=== PATIENT | female | born 1950 | race Caucasian/White ===

== ENCOUNTER 2019-10-12 12:31 | Inpatient (IN) | payer MEDICARE, OTHER ==
[~2019-10-12] VITALS: Ht 162.6 cm; Wt 99.8 kg
--- NOTE | ~2019-10-12 | OR ---
[facility] [address] [place], [place] [address] Draft DATE OF OPERATION: 10/13/2019 SURGEON: Ynes Arevalo MD PREOPERATIVE DIAGNOSES: 1. Morbid obesity. 2. Small bowel obstruction with incarcerated incisional hernia. 3. Prior upper midline incision related to the paraesophageal hernia repair 2005. POSTOPERATIVE DIAGNOSES: 1. Morbid obesity. 2. Small bowel obstruction with incarcerated incisional hernia. 3. Prior upper midline incision related to the paraesophageal hernia repair 2005. PROCEDURES: 1. Abdominal wall exploration and lysis of small bowel adhesions. 2. Repair and reconstruction of abdominal incisional hernia with unilateral components release and medialization of fascia. 3. Implantation of Prolene mesh underlay technique. ANESTHESIA: General endotracheal, Ynes De Guzman CRNA. DRAINS: 7 mm Siva x2. INDICATION: This morbidly obese 69-year-old white woman is from [place], [place], was found by Dr. Macario Ceron to have small-bowel obstruction when she presented with persistent nausea and vomiting. A CT scan was performed in [place], which demonstrated small bowel in the subcutaneous space related to a large incisional hernia in the upper midline. The patient underwent a Hill repair for complex paraesophageal hernia by me in 2005. The patient has been fluid resuscitated, given intravenous antibiotics, and is now to undergo repair of the hernia by whatever technique necessary, particularly given her underlying obesity. The risks of bleeding, infection, and most importantly recurrence were reviewed with her, she understands and wished to proceed. FINDINGS: The fascial defect initially identified was about 8 cm in size. A very large well peritonealized hernia sac was noted emanating to the left side of the abdomen containing PATIENT NAME: RUTH GROSS OPERATIVE REPORT DATE OF : 50 REPORT #: [id number] PHYSICIAN: YNES AREVALO MD PCP: HERMILO MCCOLLUM NP REPORT IS CONFIDENTIAL AND NOT TO BE RELEASED WITHOUT AUTHORIZATION [facility] [address] [place], [place] [address] Draft multiple loops of small bowel. Ultimately, the abdomen was entered, which allowed for lysis of some adhesions, which may have additionally caused obstructive symptoms. Repair of the abdominal wound was complex, particularly given further exploration cephalad showed marked attenuation in the midline fascia with herniation of omentum as well. Ultimately to allow for complete fascial closure, a component separation of the left side was undertaken allowing for medialization of the midline fascia. A large segment of Prolene mesh was implanted in the properitoneal space in a submuscular configuration. Complete fascial closure has been accomplished despite the difficulty of doing so. DESCRIPTION OF PROCEDURE: The patient was brought to the operating room, given a general endotracheal anesthetic. Preoperative antibiotic Ancef was given. Sequential compression device stockings used and a Martinez catheter was placed. The very large abdomen was prepared with a chlorhexidine solution and draped sterilely. The palpable herniation was above the umbilicus. An incision was made in a limited way above the umbilicus. Dissection carried through the subcutaneous tissue identifying and edematous hernia sac with herniated bowel. This was dissected free from the subcutaneous space with blunt dissection ultimately. Hernia sac was opened and entered and the bowel was able to be manipulated back into the peritoneal cavity. A very large and chronic peritoneal sac was noted dominantly entering to the left side of the abdomen. This was dissected free with all due care from the subcutaneous space hoping to preserve the hernia sac of the biologic barrier for implantation of mesh as a repair. The defect at this point was approximately 8-10 cm. The once the hernia sac was dissected free, properitoneal dissection was undertaken. It became clear that there would be unlikely ability to implant mesh in the properitoneal space, but rather the submuscular space. The underlying fascia was then freed from the overlying rectus abdominis muscles to develop a space in that area. Further cephalad direction demonstrated markedly attenuation even of this layer with some herniation of omentum cephalad. All of this was dissected free, which was quite time consuming. Ultimately, it was clear that the fascial defect was well defined from the underlying posterior rectus sheath. An implantation of mesh in the submuscular position would be the most appropriate means of repair of the hernia defect. To medialized the linea alba more fully, a component separation release was undertaken laterally on the left side. This allowed for medialization of the fascia. With meticulous care and interrupted 2-0 Vicryl suture, the posterior fascial sheath was able to be reapproximated to provide a more secure biologic barrier for mesh. This was undertaken with a numerous number of interrupted 2-0 Vicryl in mattress technique. PATIENT NAME: RUTH GROSS OPERATIVE REPORT DATE OF : 50 REPORT #: [id number] PHYSICIAN: YNES RAEVALO MD PCP: HERMILO MCCOLLUM NP REPORT IS CONFIDENTIAL AND NOT TO BE RELEASED WITHOUT AUTHORIZATION [facility] [address] [place] [address] Draft Photographs were taken. A 12 inch x 12 inch segment of Prolene mesh was cut to an elliptical configuration and secured in an underlay technique behind the rectus muscle with interrupted 0 Prolene sutures with Prolene pledgets. Midline fascia, thanks to lateral mobilization was medialized, allowing for interrupted 0 Prolenes with Prolene pledgets in mattress technique to reapproximate the midline fascia. Subcutaneous tissue was irrigated and two separate Siva drains were placed. This subcutaneous tissue reapproximated with interrupted 2-0 Vicryl. The skin was then closed with running subcuticular 3-0 Vicryl. Steri-Strips were applied as was a silver sponge dressing. The operation was prolonged, complicated, and difficult lasting 3 hours and 10 minutes, but was accomplished safely and with medialization of the fascia completely. MD EVE Sutton/SHILPIL /[id number] cc: Gilson Ceron MD Copies: GILSON CERON MD ~ PATIENT NAME: RUTH GROSS OPERATIVE REPORT DATE OF : 50 REPORT #: [id number] PHYSICIAN: YNES AREVALO MD PCP: HERMILO MCCOLLUM NP REPORT IS CONFIDENTIAL AND NOT TO BE RELEASED WITHOUT AUTHORIZATION
--- NOTE | ~2019-10-12 | DS ---
[facility] [address] [place], [place] [address] Draft ADMISSION DATE: 10/12/2019 DISCHARGE DATE: 10/15/2019 REASON FOR ADMISSION: This morbidly obese 69-year-old white woman is known to me from the past, having undergone Hill posterior gastropexy for a large paraesophageal hernia 16 years ago. She had done well in that regard. On Wednesday, (day of admission, ) began having vague abdominal pain and some left-sided abdominal pain, which worsened. She presented to the [facility] in [facility], where she was evaluated by Dr. Ceron and found to have on CT scan, a small bowel obstruction with herniation of small bowel in the area of the incision extending to the left of the abdomen. A nasogastric tube was placed and she was transferred for further evaluation and care. PERTINENT PHYSICAL EXAMINATION: NECK: Showed no thyromegaly or cervical adenopathy. CHEST: Clear. HEART: Regular without murmur. ABDOMEN: Broad and nondistended and quite obese. Upper midline incision is well healed. Palpation reveals bogginess in the region of the inferior aspect of the incision, consistent with possible small bowel herniation. She had no local tenderness. The fascial defect could not be defined due to her abdominal obesity. LABORATORY STUDIES: Showed white count of 12.3, hematocrit of 44.9, and platelets of 301,000. Chem profile was essentially normal. IMAGING DATA: A CT scan with counter sales representative images have been sent to me by Dr. Ceron confirming the findings of small bowel obstruction with herniation of small bowel through the midline incision and directed to the left side of the abdomen. HOSPITAL COURSE: She was received and transferred with nasogastric tube function. She underwent additional fluid resuscitation and stabilization. On October 14, 2019, she underwent operation. She was found to have a complex abdominal wall defect with herniated small bowel to the left of the midline with a very large hernia sac. Additionally, there was a fascial separation superiorly with herniation of properitoneal and omental fat. Operation included some lysis of adhesions of small bowel loops that had adhesions within the hernia sac, which quite likely was quite chronic. Abdominal reconstruction included component separation technique of the left abdomen PATIENT NAME: RUTH GROSS DISCHARGE SUMMARY DATE OF : 50 REPORT #: [id number] PHYSICIAN: YNES AREVALO MD PCP: HERMILO MCCOLLUM NP REPORT IS CONFIDENTIAL AND NOT TO BE RELEASED WITHOUT AUTHORIZATION [facility] [address] [place], [place] [address] Draft with implantation of Prolene mesh in a submuscular position with reapproximation of the underlying fascia. There is no mesh in continuity with the bowel. Medialization of the linea alba was able to be accomplished with this technique. Two drains were placed. Postoperatively, she was maintained with a nasogastric tube and a Martinez catheter for the first 24 hours, which was then removed. Her bowel function appeared to resume quite promptly, and she was ultimately advanced to a regular diet, which she tolerated well. By day of discharge, she is ambulating well, tolerating a regular diet, has serosanguineous drainage from the wound drains as expected. She is anticipated to be discharged to home with management of her own drains. We will plan to see her and return to our office in a week or so for drain removal. She has been given an abdominal binder and has been using it with ambulation. I have recommended she use it at all times when out of bed or not recumbent on the couch at home. Special instructions include avoidance of lifting more than 10 pounds for the next 4 weeks. DISCHARGE MEDICATIONS: Included: 1. Ibuprofen 600 mg p.o. q.6 hours p.r.n. pain, #60 refill two. 2. Resumption of lisinopril 10 mg p.o. daily. 3. Trazodone 50 mg p.o. as needed for sleep. 4. Calcium carbonate one tablet p.o. daily. 5. Oxycodone/Tylenol, 5/300 two tablets p.o. q.6 hours as needed for pain, #20. Additionally, she will have Tylenol 1000 mg p.o. q.6 hours as needed for pain instead of the Percocet as needed. DISCHARGE DIAGNOSES: 1. Acute small bowel obstruction related to chronic herniation of incisional hernia at midline, status post repair including component separation technique with medialization and reapproximation of fascia with underlying large Prolene mesh in submuscular position. 2. Morbid obesity. 3. Hypertension. 4. Distant history of paraesophageal hernia with Hill posterior gastropexy 16 years ago. Ynes Arevalo MD PATIENT NAME: RUTH GROSS DISCHARGE SUMMARY DATE OF : 50 REPORT #: [id number] PHYSICIAN: YNES AREVALO MD PCP: HERMILO MCCOLLUM NP REPORT IS CONFIDENTIAL AND NOT TO BE RELEASED WITHOUT AUTHORIZATION [address] [place] [address] Draft [facility] /[id number] cc: Gilson Ceron MD Copies: GILSON CERON MD ~ PATIENT NAME: RUTH GROSS DISCHARGE SUMMARY DATE OF : 50 REPORT #: [id number] PHYSICIAN: YNES AREVALO MD PCP: HERMILO MCCOLLUM NP REPORT IS CONFIDENTIAL AND NOT TO BE RELEASED WITHOUT AUTHORIZATION
--- NOTE | 2019-10-12 14:45 | NUR ---
PT ARRIVED TO FLOOR VIA STRETCHER FROM AMBULANCE, PT IS A TRANSFER FROM [facility].
[2019-10-12] MEDS ORDERED: LISINOPRIL10 MG PO (15:26)
[2019-10-12] MEDS ORDERED: TRAZODONE HCL50 MG NG (15:26)
[2019-10-12] MEDS ORDERED: CALCIUM + VITA1 EACH PO (16:25)
--- NOTE | 2019-10-12 16:25 | NUR ---
MED REC COMPLETE
--- NOTE | 2019-10-12 16:38 | NUR ---
PT ADMISSION ASSEMENT DONE. PT STATES SHE DOESN'T HAVE ANY CONCERNS OR NEEDS AT THIS TIME
--- NOTE | 2019-10-12 18:15 | NUR ---
IN PTS ROOM. PT FEELS THAT SHE HAS HAD ALL QUESTIONS ANSWERED AT THIS TIME. PER VERBAL ORDER FROM PT CAN SIP ON 7UP UNTIL MIDNIGHT, @ MIDNIGHT PT IS TO BE STRICT NPO. PT HAS CALL LIGHT AND PERSONAL PHONE WITHIN REACH
--- NOTE | 2019-10-12 18:52 | NUR ---
PT ARRIVED TO THE FLOOR AT 1445 BY AMBULANCE AND WAS TRANSFERED FROM THE [facility] ER. PT STATES SHE HAD 6/10 PAIN THAT WAS RELIEVED BY 2MG OF MORPHINE. PT A&O X4, STEADY ON HER FEET.
--- NOTE | 2019-10-12 19:08 | NUR ---
DAUGHTERS PHONE NUMBER- DESTINY- [phone]
--- NOTE | 2019-10-12 20:24 | NUR ---
coop with assessment, NGT R christianoe patentd, draining dark brown colored thick drainage, IVF infusing.
--- NOTE | 2019-10-13 00:03 | NUR ---
HELPED PT TO THE BATHROOM AND BACK TO BED. SCD'S PUT BACK ON. BEDSIDE TABLE AND CALL LIGHT IN REACH.
--- NOTE | 2019-10-13 00:06 | NUR ---
pt admited to room 119 from Ed. had 500cc bile smelling emesis, protonix given as scheduled, CBG 360, received scheduled Lantus 20 units sq. IVF infusing. Pt coop with admit assessment, will completed once he feels like talking. NPO, mouth care done. call light at bedside
--- NOTE | 2019-10-13 00:19 | NUR ---
c/o feeling nauseated, medicated with zofran 4mg IV. Up to br, voided, back to bed, NGT patent, IVf infusing
--- NOTE | 2019-10-13 02:15 | NUR ---
VITALS AND I&OS DONE AND CHARTED. BEDSIDE TABLE AND CALL LIGHT IN REACH. PT NEEDS NOTHING AT THIS TIME.
--- NOTE | 2019-10-13 02:19 | NUR ---
NGT PATENT, IVF INFUSING W/O PROBLEMS, COOP WITH ASSESSMENT, MEDICATED WITH TORADOL 30MG IV C/O ABD PAIN, NO FURTHER C/O NAUSEA. TURNS SELF IN BED, NPO SINCE MIDNIGHT, SCDS IN PLACE. CALL LIGHT AT HANDS REACH
--- NOTE | 2019-10-13 05:23 | NUR ---
Pt has been NPO for am surgery, Has been medicated with ZOfran per dry heaving and feeling nauseated, effedctive, c/o abd pain, medicated with Toradol IV, effective, IVf infusing. SCDs in place. Pt signed surgery consent, ad pre-op surgery teaching done, no questions asked, Turns self in bed, voided QS urine earlier in shift.
--- NOTE | 2019-10-13 06:31 | NUR ---
up to br, voided, back to bed, NGT patentd, IVf infusing, scds on. voided, Back to bed, tolerated well, no n/v, no c/o abd pain. 1PA
--- NOTE | 2019-10-13 06:35 | NUR ---
VITALS AND I&OS DONE AND CHARTED. HELPED PT TO THE BATHROOM AND BACK TO BED. SCD'S AND 02 PUT BACK ON. BEDSIDE TABLE AND CALL LIGHT IN REACH.
--- NOTE | 2019-10-13 07:42 | NUR ---
RECIEVED BEDSIDE REPORT FROM NAYA GUNTER. PT IS AWAKE AND ALERT IN BED, NEEDS WIPE DOWN AND PAPERWORK PRINTED FOR SURGERY. SURGERY IS SCHEDULED FOR 10-11AM. PT IS NPO. NGT IN R NARE TO LISHARI.
--- NOTE | 2019-10-13 09:27 | NUR ---
PT READY FOR SURGERY. WIPE DOWN COMPLETE, PRE-OP VOID, NEW GOWN. MEDS GIVEN, IVF HANGING OFF PUMP. PT HAS NO QUESTIONS REGARDING SURGERY.
--- NOTE | 2019-10-13 10:08 | NUR ---
PT IS OFF THE FLOOR TO OR. PREOP ABX ATTACHED TO IVF BAG. SWITCHED OFF IV PUMP.
--- NOTE | 2019-10-13 10:12 | NUR ---
SPOKE WITH PATIENT IN ROOM. PATIENT AWAITING TRIP TO OR. PATIENT STATES SHE LIVES WITH . HE WILL BE THERE TO HELP HER AND DRIVE HER HOME. SHE ALSO HAS SUPPORT OF DAUGHTER DESTINY [phone]. PATIENT DOES NOT USE DME. SHE IS RETIRED. FEELS SAFE TO RETURN HOME. SHE FEELS SHE HAS NO ISSUES WITH AFFORDING MEDS, FOOD OR UTILITIES. SHE STILL DRIVES AND HAS NO AMBULATION ISSUES. CASE MANAGEMENT WILL FOLLOW NEEDED.
--- NOTE | 2019-10-13 10:32 | NUR ---
PT ALERT, ORIENTED, RESTING IN BED WITH RM DARKENED. PT IS WAITING FOR SURGERY AND SPOKE BRIEFLY WITH ME. NG TUBE WORKING, BUT VERY UNCOMFORTABLE FOR PT. DR AREVALO IN TO SPEAK WITH PT AND OR STAFF WAITING TO TAKE PT TO SURGERY. GAVE PT A BLESSING.
--- NOTE | 2019-10-13 13:14 | EKG ---
[facility] [address] [facility] [place], [place] [address] Signed Normal sinus rhythm Anterior infarct , age undetermined T wave abnormality, consider lateral ischemia Abnormal ECG No previous ECGs available Confirmed by KHADRA FISCHER MD ([id number]) on 10/13/2019 1:13:53 PM Electronically Signed By: KHADRA FISCHER MD 10/13/19 1314 PATIENT NAME: RUTH GROSS Electrocardiogram DATE OF : 50 PHYSICIAN: KHADRA FISCHER MD REPORT #: [id number] REPORT IS CONFIDENTIAL AND NOT TO BE RELEASED WITHOUT AUTHORIZATION
--- NOTE | 2019-10-13 15:15 | NUR ---
10/13/19 1515 JESUS MARTINES 1504 PATIENT INTO PACU. AIRWAY WAS BEING MAINTAINED WITH ORAL AIRWAY AND JAW THRUST. PATIENT O2 SAT IS 90% ON 15L MASK. PATIENT RESIRATIONS ARE EVEN AND UNLABORED. PATIENT APPEARS TO EB RESTING COMFORTABLY. 1510 PATIENT RESTING COMFORTABLY. RESPIRATIONS EVEN AND UNLABORED. PATIENT HAS MADE NO ATTEMPTS TO REMOVE ORAL AIRWAY. O2 SAT IS AT 92% ON 15 LITERS. SCDS ON AND TURNED ON.
--- NOTE | 2019-10-13 16:30 | NUR ---
PT ARRIVED IN UNIT FROM PACU. PT IS DROWSY, WAKES TO VOICE, ANSWERES APROPRIATELY. USED TRANSFER SHEET TO TRANSFER TO BED. PT HAS 2 OLMAN DRAINS COVERED WITH GUAZE AND MIDLINE INCISION. PALACIOS CATH IN PLACE. CPOX IN PLACE. O2 NC AT 3L, STAYS IN LOW 90S. DENIES PAIN AT THIS TIME. DENIES NAUSEA. DRESSINGS C/D/I.
--- NOTE | 2019-10-13 17:30 | NUR ---
PT IS C/O PAIN AND NAUSEA. PRN TORADOL GIVEN, ZOFRAN GIVEN. PT IS UNABLE TO GET COMFORTABLE DESPITE MULTIPLE ATTEMPTS AT POSITIONING. WERE ABLE TO GET COMFORTABLE WITH PILLOWS. VSS. DRESSINGS C/D/I. IVF CONTINUED PREOP PER ORDER.
--- NOTE | 2019-10-13 18:22 | NUR ---
PT SLEEPING AFTER ZOFRAN AND TORADOL. APPEARS COMFORTABLE. NO COMPLAINTS AT THIS TIME. DRESSING C/D/I. WILL CONTINUE TO MONITOR.
--- NOTE | 2019-10-13 19:54 | HP ---
[facility] [address] [place], [place] [address] Signed ADMISSION DATE: 10/12/2019 REASON FOR ADMISSION: Small bowel obstruction related to incarcerated incisional hernia. HISTORY OF PRESENT ILLNESS: This morbidly obese 69-year-old white woman is known to me from the past having undergone hill posterior gastropexy for a large paraesophageal hernia 16 years ago. She has done well in that regard over the many years. She had upper endoscopy repeated in 2011, where she was found to have an intact flap valve. No evidence of recurrent paraesophageal hernia, but some evidence of duodenal erosions, which were nonbleeding. On Wednesday (today is ), she began having vague abdominal pain and some left-sided abdominal pain. She had worsening of her symptoms with associated nausea and vomiting and presented to the [facility] in [place], [place]. She was evaluated by Dr. Ceron and evaluation included a CT scan of the abdomen, which showed proximal bowel loop dilation, a small-bowel obstruction and what appeared to be incisional hernia with small bowel loops within the subcutaneous space. She was treated with nasogastric tube decompression, IV fluid resuscitation and is excepted in transfer from [place] for the purpose of her bowel obstruction management. PAST MEDICAL HISTORY: 1. Morbid obesity. 2. Hypertension. 3. History of large paraesophageal hernia repair in 2005 and subsequent upper endoscopy in 2011. SOCIAL HISTORY: She is . Communication is made with her , who is not able to be in the hospital at this time due to visiting restrictions due to the viral pandemic. I called and discussed things with him on his daughter Karina's phone ([phone]). REVIEW OF SYSTEMS: She denies any shortness of breath or chest pain. She is having no dysphagia. No reflux symptoms. Her pain is much improved since nasogastric tube decompression. PHYSICAL EXAMINATION: GENERAL: This is a morbidly obese white woman, who weighs 99 kg with BMI of 37.8. VITAL SIGNS: Temperature of 98.2, respirations 16, blood pressure 160/82, pulse 77, pulse oximetry is 98% on 2 L nasal cannula oxygen. She is 86% on room air. Electronically Signed By: YNES AREVALO MD 10/13/[address]1953 PATIENT NAME: RUTH GROSS HISTORY AND PHYSICAL DATE OF : 50 REPORT #: [id number] PHYSICIAN: YNES AREVALO MD PCP: HERMILO MCCOLLUM NP REPORT IS CONFIDENTIAL AND NOT TO BE RELEASED WITHOUT AUTHORIZATION [facility] [address] [place], [place] [address] Signed NECK: Shows no thyromegaly or cervical adenopathy. She has somewhat of an overbite. CHEST: Shows normal respiratory excursion without tachypnea or wheezing. HEART: Regular. ABDOMEN: Broad and nondistended at this time, and quite obese. Upper midline incision is well healed. Palpation reveals bogginess in the region of the inferior aspect of the incision consistent with possible herniation. Due to abdominal wall obesity, definition of a fascia defect could not be ascertained at this time. EXTREMITIES: Show no clubbing, cyanosis, or edema. LABORATORY DATA: Studies have been obtained showing a white count of 12.3, hematocrit of 44.9, and platelet count of 301,000. Chem profile with lab study is still pending including electrolytes. Under the circumstances of her obesity, we will obtain additionally a chest x-ray to ascertain no infiltrate or other stigmata of COVID-19 viral infection as well as a 12-lead EKG. ASSESSMENT: I reviewed images from the CT scan performed in [place], which confirmed the clinical impression of small bowel obstruction related to hernia. She has no sign of peritonitis. She has some dehydration and fluid resuscitation was undertaken at this time. She is offered to undergo operation tomorrow to include open repair of incarcerated hernia causing bowel obstruction. The risks of bleeding, infection, recurrence, and other unforeseen complications were reviewed in detail. I think she will do well with operation and certainly does need to have it done. I discussed this also with her on the phone, who understands and agrees. Review of the notes from Dr. Ceron from earlier in the day, confirmed that she has been unable to tolerate oral intake or her blood pressure medicine. On that basis, continued use of a nasogastric tube and IV fluid administration will be maintained until operative intervention. MD EVE Sutton/MODL /[id number] cc: Deion Ceron MD Electronically Signed By: YNES AREVALO MD 10/13/191953 PATIENT NAME: RUTH GROSS HISTORY AND PHYSICAL DATE OF : 50 REPORT #: [id number] PHYSICIAN: YNES AREVALO MD PCP: HERMILO MCCOLLUM NP REPORT IS CONFIDENTIAL AND NOT TO BE RELEASED WITHOUT AUTHORIZATION [facility] [address] [facility] [place], [place] [address] Signed Copies: DEION CERON MD ~ Electronically Signed By: YNES AREVALO MD 10/13/19 1954 PATIENT NAME: RUTH GROSS ARTUR HISTORY AND PHYSICAL DATE OF : 50 REPORT #: [id number] PHYSICIAN: YNES AREVALO MD PCP: HERMILO MCCOLLUM NP REPORT IS CONFIDENTIAL AND NOT TO BE RELEASED WITHOUT AUTHORIZATION
--- NOTE | 2019-10-13 21:45 | NUR ---
[facility] RN ROUNDING NOTE. PT RESTING IN BED WITH EYES CLOSED. RESPIRATIONS EVEN AND UNLABORED. PT APPEARS TO BE SLEEPING COMFORTABLY. CALL LIGHT IN REACH. WHITE BOARD UPDATED.
--- NOTE | 2019-10-13 22:21 | NUR ---
comfortable, no c/o n/v or pain.
--- NOTE | 2019-10-14 00:10 | NUR ---
Resting, O2 3L NC. NGT patent, draining thick brown drainage to ILWS, IVF infusing, midline abd incision with pressure dressing intact, 2JP draining sanguineous drainage. abd binder removed earlier at pts requests, f/c patent. scds on. hob elevated, NPO with ice chips, call light at bedside
--- NOTE | 2019-10-14 03:04 | NUR ---
awakes eaily, repositions self, NGT patentd, draining small amounts of dark very brown colored thick drainage, O2 3LNC, denies sob, denies passing gas or burping, midline abd dressing in tact, 2JP draining sanguneous drainage, scds in place, no c/o apin. NPO, does own mouth care
--- NOTE | 2019-10-14 04:27 | NUR ---
Resting, HOB elevated to comofrt, NGT paten IVf infusing, SCDS on, no resp distress, eyes closed, resp even, unlabored, call light at bedside
--- NOTE | 2019-10-14 05:03 | NUR ---
pt c/o 2-3 abd pain, medicated iwth toradol iv, c/o light upset stomach, medicated with zofran 4mg iv.
--- NOTE | 2019-10-14 05:30 | NUR ---
Up to edge of bed, tolerated well, then she walked in room, to first recliner chair and back to bed, tolerated well. denies passing gas. O2 weaned down to 2L NC. CPOX 96%
--- NOTE | 2019-10-14 05:59 | NUR ---
Pt has slept well, denies passing gas. NGT R nare patent draining thick dark brown drainage. LIWS. VLADIMIR, midline abd dressing intact, 2JP, L (#2) OLMAN with more drainage that R(#1). abd soft. medicatred x2 per abd pain, with good pain relief. with Zofran x1 with good relief. F/c patent, QS dark yellow urine. SCds in place, Pt stood at edge of bed and walked in room, tolerated very well, Back to bed, HOB elevated NPO with ice chips, tolerating well, using call ight appropriately. IVF infusing well, no c/o adverse reaction to IV abx. IVF/Med teaching done, coantinue to reinforce post op wound care/pain/nausea med/ambulation and OLMAN care
--- NOTE | 2019-10-14 08:42 | NUR ---
PER ORDER, DC NGT AND PALACIOS CATH. PT TOLERATED WELL. PT STATED HER NAUSEA IS MINIMAL, BUT SHE "COULD TASTE ICK WHEN THE TUBE WAS PULLED". DENIES FLATUS, BUT STATES SHE CAN FEEL "RUMBLING". SUZANNE FERNANDEZ. ENCOURAGED PO INTAKE. PT HAS BEEN OUT OF BED TO CHAIR X1. AGREES TO GET UP AND AMBULATE IN HALLS X4 TODAY. BINDER OFF WHILE IN BED PER REQUEST. AGREES TO WEAR WHEN OOB.
--- NOTE | 2019-10-14 11:01 | NUR ---
PATIENT IN BED RESTING. PATIENT WORKING ON EATING SOME PEARS. CALL LIGHT IN REACH. PATIENT STATES PAIN IS STARTING TO COME BACK, RN NOTIFIED. NO FURTHER NEEDS AT THIS TIME.
--- NOTE | 2019-10-14 14:02 | NUR ---
PATIENT GETTING UP TO BATHROOM AND TO AMBULATE WITH RN. FRESH WATER GIVEN. CALL LIGHT IN REACH. NO FURTHER NEEDS AT THIS TIME.
--- NOTE | 2019-10-14 14:27 | NUR ---
PT UP TO WALK IN HALLWAY. PT WALKED FROM ROOM TO EAST END OF NURSES STATION. PT HAD ABD BINDER ON. PT UP TO VOID, VOIDED 200ML. PT TOLERATED WELL. O2 WHEN BACK IN BED WAS 88%. REPLACED O2 AT 1L, O2 SATS AT 93%. REMINDED PT TO COUGH AND DEEP BREATHE.
--- NOTE | 2019-10-14 18:22 | NUR ---
PATIENT IN BED WATCHING TV. NO VOID, RN NOTIFIED. CALL LIGHT IN REACH. NO FURTHER NEEDS AT THIS TIME.
--- NOTE | 2019-10-14 19:51 | NUR ---
Pt up in bed, hob elevated on 1LNC, IVf infusing, midline abd dressing with old shadowing, 2JP patent draining ss drainage. scds in place.c/o 10 ph/a pain., medicated iwth tylenol 1000mg po. states passing gas, tolerating reg diet, no c/o n/v
--- NOTE | 2019-10-14 22:24 | NUR ---
ANSWERED CALL LIGHT. SBA PATIENT IS UP FROM CHAIR TO USE THE TOILET. PATIENT IS BACK IN BED. CALL LIGHT IN REACH. SCD'S ARE ON.
--- NOTE | 2019-10-15 00:30 | NUR ---
resting, eyes closed, O2 1l NC, no resp distress, resp even, unlabored, ivf infusing, scds in place. call light at bedside
--- NOTE | 2019-10-15 01:49 | NUR ---
Resting, in bed, hob elevated to her comfort, on 1L NC, no resp distress. IVF infusing. scds in place. call light and lfuids at bedside
--- NOTE | 2019-10-15 07:01 | NUR ---
IV infiltrated, Dr Wu notified via phoneas asher Kohli to dc iv
--- NOTE | 2019-10-15 07:14 | NUR ---
RECIEVED REPORT FROM NAYA GUNTER. PT IS AWAKE AND ALERT. HAS BEEN UP WALKING IN ROOM. PT IS PASSING GAS. IV WENT BAD AT 0600. VERBAL ORDER TO LEAVE OUT SINCE SHE IS DISCHARGING TODAY.
--- NOTE | 2019-10-15 09:55 | NUR ---
PT UP TO VOID AND WALKED A BIG LAP AROUND NURSES STATION. STATES SHE FEELS MORE SORE TODAY, BUT IS MOVING SMOOTHER AND LESS RIGID. PASSING GAS, NO BM. ATE 50%. ABD BINDER ON. REPLACED SCDS.
--- NOTE | 2019-10-15 10:14 | NUR ---
PATIENT IN BED RESTING. CALL LIGHT IN REACH. NO FURTHER NEEDS AT THIS TIME.
[2019-10-15] MEDS ORDERED: IBUPROFEN600 MG PO (13:13)
[2019-10-15] MEDS ORDERED: PRIMLEV 5-3001 EACH PO (13:15)
--- NOTE | 2019-10-15 13:20 | NUR ---
PT IS IN THE SHOWER, DR AREVALO HAS ROUNDED. PT READY TO GO HOME. WILL GET DRESSED AND READY TO GO HOME.
[2019-10-15] MEDS ORDERED: MAPAP500 M1 PO (13:24)
--- NOTE | 2019-10-15 14:31 | NUR ---
DISCHARGE TEACHING COMPLETE. DISCUSSED WHEN TO FOLLOW UP, WHEN TO CALL THE DOCTOR, DIET, ACTIVITY, MEDICATIONS. VITALS TAKEN AND ENTERED. ALL PERSONAL BELONGINGS REMOVED FROM ROOM. PAIN MEDICATION GIVEN PRIOR TO DISCHARGE. PT VERBALIZED UNDERSTANDING.
== END 2019-10-15 14:15 | disposition home or self-care (01) | DRG 355 ==
LOC: MS 12:31
PROVIDERS: ADMIT Surgery
PROC: 0WUF0JZ Supplement Abdominal Wall with Synthetic Substitute, Open Approach (ICD-10-PCS; principal; 2019-10-13 08:30)
DX: K43.0 Incisional hernia with obstruction, without gangrene (principal); I10 Essential (primary) hypertension; E86.0 Dehydration; E66.01 Morbid (severe) obesity due to excess calories; Z68.37 Body mass index [BMI] 37.0-37.9, adult; Z79.899 Other long term (current) drug therapy
CPT/HCPCS: 36415; 71046; 80053; 82247; 82465; 83615; 84100; 84478; 84550; 85025; 93005; 93010; A9270; C1781; J0690; J1100; J1644; J1720; J1885; J2250; J2270; J2405; J2704; J2765; J3010; J7121

== ENCOUNTER 2023-04-19 12:56 | Day surgery (SDC) | payer MEDICARE, OTHER ==
[~2023-04-19] VITALS: Ht 160 cm; Wt 90.9 kg
[~2023-04-19 12:56] MED LIST: CALCIUM + VITA1 EACH PO; IBUPROFEN600 MG PO; LISINOPRIL10 MG PO; MAPAP500 M1 PO; PRIMLEV 5-3001 EACH PO; TRAZODONE HCL50 MG NG
[2023-04-19 13:14] VITALS: BP 117/52
--- NOTE | 2023-04-19 13:25 | NUR ---
DISCUSSED WITH DR. AREVALO THE NEED FOR ABX WITH THE PT HAVING A SPLEENECTOMY. NO ORDER RECEIVED.
--- NOTE | 2023-04-19 15:07 | NUR ---
04/19/23 1507 Elisa Bonilla 1454 PT ARRIVED IN PACU SLEEPY WITH NO C/O'S. ABD SOFT. 1507 RESTING. REU.
[2023-04-19 15:31] VITALS: BP 122/68
--- NOTE | 2023-04-19 20:08 | OR ---
[facility] [address] [place], [place] [address] Signed DATE OF OPERATION: 04/19/2023 SURGEON: Ynes Arevalo MD PREOPERATIVE DIAGNOSES: 1. History of Hill repair for paraesophageal hernia in 2005, episodic reflux symptoms. 2. Colon screening. POSTOPERATIVE DIAGNOSES: 1. Intact flap valve with small fundic paraesophageal hernia. 2. Mild cecitis, otherwise normal colon. PROCEDURES: 1. Esophagogastroduodenoscopy with biopsy. 2. Total colonoscopy to cecum with biopsy of cecum and transverse colon. INDICATION: This 72-year-old white woman is a patient of DEWAYNE Kitchen and known to me from the past having undergone Hill posterior gastropexy for a large paraesophageal hernia. She does have occasional dysphagia, though takes Prevacid for peptic symptoms as well sometimes. She is here for surveillance colonoscopy as well. She last underwent colonoscopy in 2009 showing a normal colon, though she did have hyperplastic changes of the sigmoid. Prior colonoscopy was on the basis of diarrhea which she does not currently have. She understands the risk of upper endoscopy and colonoscopy and wished to proceed at this time. FINDINGS: Upper endoscopy showed some antral gastritis and duodenitis. The flap valve was normal in configuration, though there was a paraesophageal hernia of small amount of the fundus adjacent to it which was not large or ulcerated. There is no sign of Scott's esophagus though some mild chronic esophagitis is likely. On colonoscopy, there was no evidence of polyps or diverticulosis but she did have mild inflammation of the cecum. PROCEDURE IN DETAIL: The patient was brought to the endoscopy suite and placed in the lateral decubitus position, given intravenous sedation to the point of slurred speech and nystagmus with Electronically Signed By: YNES AREVALO MD 04/19/232007 PATIENT NAME: RUTH GROSS OPERATIVE REPORT DATE OF : 50 REPORT #: [id number] PHYSICIAN: YNES AREVALO MD PCP: MELINA OQUENDO NP REPORT IS CONFIDENTIAL AND NOT TO BE RELEASED WITHOUT AUTHORIZATION [facility] [address] [place], [place] [address] Signed full cardiopulmonary monitoring. A bite block was placed. An Olympus video upper endoscope was passed into the hypopharynx. Vocal cords were visualized as normal. The scope was easily advanced down the esophagus, which showed no sign of Scott's epithelium, stricture or neoplasm and mild inflammatory change of the distal esophagus. The scope was easily passed in the stomach which was insufflated with air. Rugal folds were normal. The antrum had mild inflammation. The pylorus was normal. Scope was passed through into the duodenum. There was mild duodenitis in the bulbar portion, but the remaining duodenum was normal. Biopsies were taken in both places. The scope was then withdrawn to the stomach, antrum, and biopsies taken of the antrum for both INNA and pathologic testing. Retroflexed view was undertaken showing an intact flap valve but the fundus of the stomach no doubt with small paraesophageal component as a hernia. The scope was straightened and withdrawn and biopsy was then taken of distal esophagus and ultimately the midesophagus as well. The scope was removed and the patient was then prepared for colonoscopy. Additional sedation was given. Digital rectal examination was performed. The Olympus video colonoscope was passed in the rectum and manipulated throughout the colon ultimately intubating the cecum itself. There did appear to be some mild cecal inflammation which was not severe and there was no stricture or neoplasm. Biopsies were obtained. The scope was then withdrawn and biopsies additionally taken of the transverse colon. Further withdrawal showed no other abnormalities. Retroflexed view of the rectum was essentially normal. Scope was removed and the patient was taken to the recovery room in good condition. CONCLUDING DIAGNOSES: 1. Mild cecitis on colonoscopy. 2. Intact flap valve but fundus of stomach possibly with herniation above diaphragm of little clinical importance; mild antral gastritis and possibly mild distal esophagitis. PLAN: We would recommend repeat colonoscopy in 10 years. She will return to see me if her upper gastrointestinal symptoms should recur or worsen. MD EVE Sutton/MODL Electronically Signed By: YNES AREVALO MD 04/19/232007 PATIENT NAME: RUTH GROSS OPERATIVE REPORT DATE OF : 50 REPORT #: [id number] PHYSICIAN: YNES AREVALO MD PCP: MELINA OQUENDO NP REPORT IS CONFIDENTIAL AND NOT TO BE RELEASED WITHOUT AUTHORIZATION [facility] [address] [place] [id number] Signed /[id number] cc: Melina Oquendo NP Copies: MELINA OQUENDO NP ~ Electronically Signed By: YNES AREVALO MD 04/19/23 2008 PATIENT NAME: RUTH GROSS OPERATIVE REPORT DATE OF : 50 REPORT #: [id number] PHYSICIAN: YNES AREVALO MD PCP: MELINA OQUENDO NP REPORT IS CONFIDENTIAL AND NOT TO BE RELEASED WITHOUT AUTHORIZATION
--- NOTE | 2023-04-22 15:02 | PATH ---
[facility] [address] [facility] [place], [place] [address] Signed SPECIMEN(S): A DUODENAL BIOPSY SPECIMEN(S): B DUODENAL BULB BIOPSY SPECIMEN(S): C ANTRUM BIOPSY SPECIMEN(S): D DISTAL ESOPHAGEAL BIOPSY SPECIMEN(S): E MID ESOPHAGEAL BIOPSY SPECIMEN(S): F CECUM COLON BIOPSY SPECIMEN(S): G TRANSVERSE COLON BIOPSY SPECIMEN SOURCE: A. DUODENAL BIOPSY B. DUODENAL BULB BIOPSY C. ANTRUM BIOPSY D. DISTAL ESOPHAGEAL BIOPSY E. MID ESOPHAGEAL BIOPSY F. CECUM COLON BIOPSY G. TRANSVERSE COLON BIOPSY CLINICAL HISTORY: Surveillance colonoscopy/EGD. GERD. FINAL PATHOLOGIC DIAGNOSIS: A. Duodenal biopsy: - Benign duodenal mucosa, negative for specific diagnostic abnormality. B. Duodenal bulb, biopsy: - Benign duodenal mucosa, negative for specific diagnostic abnormality. C. Antrum, biopsy: - Benign gastric type mucosa with focal mild chronic gastritis. - A Helicobacter pylori immunostain is negative for organisms. D. Distal esophageal biopsy: - Benign esophageal mucosa, negative for increased epithelial eosinophils. - Negative for glandular mucosa. E. Mid esophageal biopsy: - Benign esophageal mucosa, negative for increased epithelial eosinophils. F. Cecum colon, biopsy: - Benign colonic mucosa, negative for specific diagnostic abnormality. G. Transverse colon, biopsy: - Benign colonic mucosa, negative for specific diagnostic abnormality. JVR:cml MICROSCOPIC EXAMINATION: Histologic sections of all submitted blocks are examined by light microscopy. PATIENT NAME: RUTH GROSS PATHOLOGY DATE OF : 50 REPORT #: [id number] PHYSICIAN: TAYLER PATHOLOGY PCP: HERMILO MCCOLLUM CATEGORY DEVELOPMENT ANALYST REPORT IS CONFIDENTIAL AND NOT TO BE RELEASED WITHOUT AUTHORIZATION [facility] [address] [place], [place] [address] Signed These findings, together with the gross examination, support the pathologic diagnosis. GROSS DESCRIPTION: A. The specimen, labeled and designated "Ball, duodenum biopsy," is received in formalin and consists of two aragon soft tissue fragments, ranging from 0.1-0.2 cm. Entirely submitted in (A1). B. The specimen, labeled and designated "Ball, duodenal bulb biopsy," is received in formalin and consists of two aragon soft tissue fragments, ranging from 0.1-0.2 cm. Entirely submitted in (B1). C. The specimen, labeled and designated "Ball, antrum biopsy," is received in formalin and consists of two aargon soft tissue fragments, ranging from 0.2 up to 0.3 cm. Entirely submitted in (C1). D. The specimen, labeled and designated "Ball, distal esophagus biopsy," is received in formalin and consists of three aragon soft tissue fragments, ranging from 0.2-0.4 cm. Entirely submitted in (D1). E. The specimen, labeled and designated "Ball, mid esophagus biopsy," is received in formalin and consists of two aragon soft tissue fragments, ranging from 0.2-0.4 cm. Entirely submitted in (E1). F. The specimen, labeled and designated "Ball, cecum biopsy," is received in formalin and consists of three aragon soft tissue fragments, ranging from 0.1-0.2 cm. Entirely submitted in (F1). G. The specimen, labeled and designated "Ball, transverse colon biopsy," is received in formalin and consists of two aragon soft tissue fragments, ranging from 0.1-0.2 cm. Entirely submitted in (G1). JS (under the direct supervision of a pathologist) The Gross Description was prepared using a voice recognition system. The report was reviewed for accuracy; however, sound-alike word errors, addition and/or deletions may occur. If there is any question about this report, please contact Client Services. ADDITIONAL NOTES: Immunohistochemical and/or in situ hybridization studies if performed in this case included appropriate positive controls that reacted as expected. This test was developed and its performance characteristics determined by [facility]. It has not been cleared or approved by the U.S. Food and Drug Administration. The FDA has determined that such clearance or approval is not necessary. This test is used for clinical purposes. It should not be regarded as investigational or for research. [facility] is certified under the Clinical Laboratory Improvement PATIENT NAME: RUTH GROSS PATHOLOGY DATE OF : 50 REPORT #: [id number] PHYSICIAN: TAYELR NAIK PCP: HERMILO MCCOLLUM NP REPORT IS CONFIDENTIAL AND NOT TO BE RELEASED WITHOUT AUTHORIZATION [address] [address] Signed Amendments of 1988 (CLIA) as qualified to perform high complexity clinical laboratory testing. PERFORMING LABORATORY: Technical component was performed by [facility], [address] [place] [id number] (CLIA# [id number]). Professional interpretation was performed by [facility] - [facility], [facility] [place] [address] (CLIA#: [id number]). Diagnostician: Isacc Bartlett MD Pathologist Electronically Signed 04/22/2023 Copies: ~ PATIENT NAME: RUTH GROSS PATHOLOGY DATE OF : 50 REPORT #: [id number] PHYSICIAN: TAYLER NAIK PCP: HERMILO MCCOLLUM NP REPORT IS CONFIDENTIAL AND NOT TO BE RELEASED WITHOUT AUTHORIZATION
== END 2023-04-19 15:45 | disposition home or self-care (01) ==
LOC: OPS 12:56 → DS 13:01 → OPS 13:45 → DS 13:45 → OPS 15:45
PROVIDERS: ATTEND Surgery
PROC: 0DB98ZX Excision of Duodenum, Via Natural or Artificial Opening Endoscopic, Diagnostic (ICD-10-PCS; 2023-04-19)
PROC: 0DB68ZX Excision of Stomach, Via Natural or Artificial Opening Endoscopic, Diagnostic (ICD-10-PCS; 2023-04-19)
PROC: 0DB58ZX Excision of Esophagus, Via Natural or Artificial Opening Endoscopic, Diagnostic (ICD-10-PCS; 2023-04-19)
PROC: 0DBH8ZX Excision of Cecum, Via Natural or Artificial Opening Endoscopic, Diagnostic (ICD-10-PCS; principal; 2023-04-19 13:45)
PROC: 0DBL8ZX Excision of Transverse Colon, Via Natural or Artificial Opening Endoscopic, Diagnostic (ICD-10-PCS; 2023-04-19 13:45)
DX: Z12.11 Encounter for screening for malignant neoplasm of colon (principal); K52.9 Noninfective gastroenteritis and colitis, unspecified; K29.50 Unspecified chronic gastritis without bleeding; K44.9 Diaphragmatic hernia without obstruction or gangrene; K29.80 Duodenitis without bleeding; K21.9 Gastro-esophageal reflux disease without esophagitis; I10 Essential (primary) hypertension; E66.01 Morbid (severe) obesity due to excess calories; Z68.35 Body mass index [BMI] 35.0-35.9, adult; Z79.899 Other long term (current) drug therapy
CPT/HCPCS: 88305; 88342; 99153; G0500; J2250; J3010; J7121

== ENCOUNTER 2023-07-16 09:42 | Inpatient (IN) | payer MEDICARE, OTHER ==
[~2023-07-16] VITALS: Ht 160 cm; Wt 90.3 kg
[2023-07-16 10:08] LABS: BILIRUBIN, URINE NEGATIVE (negative); BLOOD/HGB, URINE MODERATE (Negative); KETONE, URINE SMALL (Negative); LEUK ESTERASE, URINE TRACE (negative); NITRITE, URINE NEGATIVE (negative)
[2023-07-16 10:17] LABS: EPITHELIAL CELLS, URINE SQUAMOUS 1+ /lpf (0-1+)
[2023-07-16 10:18] LABS: BACTERIA, URINE RARE /hpf (negative); REFLEX CULTURE, URINE Yes (No)
[2023-07-16 10:19] LABS: BASOPHILS 0.3 % (0-2); EOSINOPHILS 0.4 % (0-6); HEMATOCRIT 43.1 % (35.0-50.0); HEMOGLOBIN 14.5 g/dL (12.0-18.0); LYMPHOCYTES 20.4 % (24-44); MCH 31.3 (27-36); MCHC 33.6 g/dl (30-36); MCV 93.4 fl (81-99); MONOCYTES 6.3 % (0-12); NEUTROPHILS 72.6 % (39-80); PLATELET COUNT 224 K/uL (140-440); RBC 4.61 M/ul (4.3-5.7); RDW 13.3 (10.5-15.0)
[2023-07-16 10:33] LABS: ALBUMIN 3.6 g/dL (3.4-5.0); ALBUMIN/GLOBULIN RATIO 0.92 (1.1-2.4); ANION GAP 15.4 (7-21); BUN/CREATININE RATIO 11.36 (6.0-28.6); CALCIUM 9.3 mg/dL (8.5-10.1); CREATININE, SERUM 0.88 mg/dL (0.55-1.02); POTASSIUM 3.4 mmol/L (3.5-5.1); PROTEIN, TOTAL 7.5 g/dL (6.4-8.2)
--- NOTE | 2023-07-16 12:45 | NUR ---
PT ARRIVES TO ROOM IN WHEELCHAIR ACCOMPANIED BY NAYA GUY. PT AMBULATES WITH STEADY GAIT FROM WHEELCHAIR TO BED. VITALS AND BED WEIGHT COMPLETE. IV FLUSHES WNL. 1330 ASSESSMENT COMPLETE. LUNG SOUNDS CLEAR IN RUL, ADAN AND LLL. DIMINISHED IN RLL. BOWEL TONES ACTIVE. PT REPORTS ABD TENDERNESS WITH PALPATION TO LUQ. PT REPORTING PAIN 3/10 IN ABD. PT STATES "IT IS LIKE I AM CONSTIPATED." PT DENIES ANY PRN PAIN MEDICAITON. PEDAL PULSES PALPABLE AND EQUAL. RADIAL PULSES PALPABLE AND EQUAL. SCAR NOTED TO LLE RODRIGUEZ. TRACE EDEMA NOTED TO BLE AND BUE. IN ROOM ON COUCH. PT REPORTS TOILETING NEEDS. SBA FROM BED TO RESTROOM AND BACK TO BED. PT HAS STEADY GAIT. VOID NOTED. 1345 DR. BEARDEN ARRIVES TO ROOM. PT SITTING UP IN BED. CALL LIGHT IN REACH. NO OTHER NEEDS REPORTED AT THIS TIME.
[2023-07-16 12:55] VITALS: BP 128/53
--- NOTE | 2023-07-16 14:25 | NUR ---
IN TO COMPLETED ASSESSMENT, PATIENT RESTING IN BED WITH EYES CLOSED, RESPIRATIONS EVEN AND UNLABORED. ALLOWED TO REST AT THIS TIME. WILL RETURN TO ATTEMPT ASSESSMENT AT A LATER TIME.
[2023-07-16] MEDS ORDERED: VITAMIN C500 M1 PO (15:05)
--- NOTE | 2023-07-16 15:05 | NUR ---
MED REC COMPLETE
--- NOTE | 2023-07-16 15:32 | NUR ---
IN TO ADMINISTER MEDICATIONS, SEE MAR. PT SITTING UP IN BED AND RESPONDS WHEN ADDRESSED. PT REPORTING PAIN 2/10 IN ABD. PT REFUSES PRN PAIN MEDICATION WHEN OFFERED. IV INFUSING WNL. PT EDUCATED ON MEDICATIONS. ALLERGY BAND APPLIED. PT DENIES ANY OTHER NEEDS AT THIS TIME. CALL LIGHT IN REACH.
--- NOTE | 2023-07-16 16:36 | NUR ---
APPEARS TO BE SLEEPING. ALLOWED TO REST.
--- NOTE | 2023-07-16 16:49 | NUR ---
IN TO ANSWER CALL LIGHT. PT REPORTING TOILETING NEEDS. SBA FROM BED TO RESTROOM AND BACK TO BED. PT HAS STEADY GAIT. VOID NOTED. PT BACK IN BED. PT DENIES ANY OTHER NEEDS AT THIS TIME. CALL LIGHT IN REACH.
[2023-07-16 18:12] VITALS: BP 123/49
--- NOTE | 2023-07-16 18:18 | NUR ---
IN TO ROUND ON PT. PT SITTING UP IN BED. PT RESPONDS WHEN ADDRESSED. IN ROOM. VITALS AND I&Os COMPLETE. SDCs PLACED. IS PROVIDED AND EDUCATION PROVIDED. PT REPORTING PAIN /10. PT DENIES ANY PRN PAIN MEDICATION. PT REPORTING NAUSEA. PT REQUESTING PRN NAUSEA MEDICATION. WILL RETURN WITH MEDICATION. PT DENIES ANY OTHER NEEDS AT THIS TIME. CALL LIGHT IN REACH.
--- NOTE | 2023-07-16 18:26 | NUR ---
IN WITH SN TEJ TO ADMINISTER PRN NAUSEA MEDICATION, SEE MAR. PT SITTING UP IN BED AND RESPONDS WHEN ADDRESSED. PT DENIES ANY OTHER NEEDS AT THIS TIME. CALL LIGHT IN REACH. COOL RAG PROVIDED FOR FOREHEAD. CHAP STICK PROVIDED.
--- NOTE | 2023-07-16 18:52 | NUR ---
PT REMAINS NPO FOR SURGERY 07/17/23. VSS. PT VOIDING QS. PT REPORTS PAIN IS TOLERABLE. PT CONTINUES TO HAVE NAUSEA AT TIME. SCDs IN PLACE.
--- NOTE | 2023-07-16 19:05 | NUR ---
REPORT RECIEVED FROM JODEE PERSON. pt RESTING IN THE BED. IV ASSESSED, WNL. pt DENIES ANY NEEDS AT THIS TIME. CALL LIGHT WITHIN REACH.
[2023-07-16 20:16] VITALS: BP 118/55
--- NOTE | 2023-07-16 20:30 | NUR ---
ASSESSMENT AND VITAL SINGS DONE. pt DENIES ANY PAIN AT THIS THIS TIME. pt STATES HER LRQ IS TENDER WITH PALPATION. IV ABX INFUSING PER ORDER. IVF INFUSING PER ORDER, SEE MAR. SCHEDULED MEDICATION ADMINISTERED, SEE MAR. pt UP TO BR. SBA/INDEPENDENT IN RM. SCD'S. IV FLUSHED WITH 10 MLS NS. BOWEL TONES ACTIVE. pt DENIES ANY OTHER NEEDS AT THIS TIME. CALL LIGHT WITHIN REACH.
--- NOTE | 2023-07-16 23:31 | EKG ---
[facility] [address] [facility] [place] [address] Signed Normal sinus rhythm Delayed R wave progression Nonspecific T wave abnormality Confirmed by Mata Coreas M.D. ([id number]) on 07/16/2023 11:31:49 PM Electronically Signed By: MATA COREAS 07/16/[address] [facility] PATIENT NAME: RUTH GROSS Electrocardiogram DATE OF : 50 PHYSICIAN: MATA COREAS REPORT #: [id number] REPORT IS CONFIDENTIAL AND NOT TO BE RELEASED WITHOUT AUTHORIZATION
--- NOTE | 2023-07-16 23:47 | NUR ---
pt CALLED TO USE THE BR. SBA TO BR. SCDS PLUGGED BACK IN. pt DENIES PAIN AT THIS TIME. NO OTHER NEEDS AT THIS TIME. CALL LIGHT WITHIN REACH.
[2023-07-17] VITALS (16 sets, daily range): BP systolic 104–120; BP diastolic 48–58
--- NOTE | 2023-07-17 02:00 | NUR ---
ASSESSMENT AND VITAL SIGNS DONE. SCHEDULED IV ABX AND BP MEDICATIONS ADMINISTERED, SEE MAR. pt UP TO BR. SBA/IND. SCDS ON. BOWEL TONES ACTIVE. pt STATES ABDOMIN IS TENDER. pt DENIES ANY OTHER NEEDS AT THIS TIME. CALL LIGHT WITHIN REACH.
--- NOTE | 2023-07-17 04:07 | NUR ---
pt RESTING IN THE BED WITH EYES CLOSED. RR EVEN AND UNLABORED. NO S/SX OF OBVIOUS DISTRESS. CALL LIGHT WITHIN REACH.
[2023-07-17 05:22] LABS: BASOPHILS 0.5 % (0-2); EOSINOPHILS 0.2 % (0-6); HEMATOCRIT 36.2 % (35.0-50.0); HEMOGLOBIN 12.2 g/dL (12.0-18.0); LYMPHOCYTES 21.7 % (24-44); MCH 31.5 (27-36); MCHC 33.6 g/dl (30-36); MCV 93.5 fl (81-99); MONOCYTES 8.1 % (0-12); NEUTROPHILS 69.5 % (39-80); PLATELET COUNT 205 K/uL (140-440); RBC 3.87 M/ul (4.3-5.7); RDW 13.4 (10.5-15.0)
--- NOTE | 2023-07-17 05:30 | NUR ---
VITAL SIGNS DONE. pt UP TO THE BR. SBA/INDEPENDENT IN THE RM. SCDS ON. pt DENIES ANY OTHER NEEDS AT THIS TIME. CALL LIGHT WITHIN REACH.
[2023-07-17 05:33] LABS: ANION GAP 11.7 (7-21); BUN/CREATININE RATIO 9.63 (6.0-28.6); CALCIUM 8.3 mg/dL (8.5-10.1); CREATININE, SERUM 0.83 mg/dL (0.55-1.02); MAGNESIUM 1.5 mg/dL (1.8-2.4); PHOSPHORUS, INORGANIC 2.3 mg/dL (2.5-4.9); POTASSIUM 3.7 mmol/L (3.5-5.1)
--- NOTE | 2023-07-17 07:50 | NUR ---
RECEIVED REPORT FROM NAYA DOLL. ASSUMING CARE OF PT. PT AWAKE AND ALERT IN BED, AT THE BEDSIDE. PT STATES NO NEEDS AT THIS TIME, CALL LIGHT WITHIN REACH, PT DENIES PAIN AT THIS TIME. DR. BEARDEN TO THE BEDSIDE.
--- NOTE | 2023-07-17 08:45 | NUR ---
PT WIPES SELF WITH CHG WIPES, CHANGES SELF INTO NEW GOWN, REMOVES UNDERWEAR. NEW LINENS IN PLACE. OR STAFF TO BEDSIDE, PT LEAVES ROOM ON BED WITH OR STAFF.
--- NOTE | 2023-07-17 12:26 | NUR ---
DR. BEARDEN TO PT ROOM DISCUSSING SURGERY WITH FAMILY, PT NOT YET BACK TO ROOM FROM SURGERY.
--- NOTE | 2023-07-17 12:28 | NUR ---
07/17/23 1228 AmyMichell 1210 PATIENT INTO PACU BAY 4. REPORT RECIEVED FROM NETO AGUILAR AND NAYA DICKEY. PATIENT NONREACTIVE. PATIENT BREATHING EQUAL AND UNLABORED. OXYGEN SATURATIONS ABOVE 90% ON 6 LITERS OF OXYGEN AND OPA IN PLACE. SR ON TELE. RR 12-20. 1220 PATIENT NONREACTIVE. BREATHING EQUAL AND UNLABORED. OXYGEN SATURAITONS ABOVE 90% ON 6 LITERS VIA MASK AND OPA ON PLACE. SR ON TELE. RR 12-20. IVF INFUSING. SCD'S ON. 1225 PATIENT NONREACTIVE. BREATHING EQUAL AND UNLABORED. OXYGEN SATURATIONS ABOVE 90% ON 6 LITERS VIA MASK. OPA IN PLACE. SR ON TELE. RR 12-20. 1227 OPA REMOVED. PATIENT ON 6 LITERS VIA MASK. BREATHING EQUAL AND UNLABORED. OXYGEN SATURATIONS ABOVE 90%.
--- NOTE | 2023-07-17 13:00 | NUR ---
PT WHEELED TO ROOM ON MEDSUR UNIT BY NAYA MAHER. REPORT RECEIVED FROM NAYA MAHER. POST-OP VITAL SIGNS STABLE, CPOX IN PLACE PER PROTOCOL. PT DENIES PAIN/NAUSEA/SOB AT THIS TIME. DAUGHTER AT THE BEDSIDE. PT STATES SHE FEELS "A LITTLE SLEEPY" WHEN BACK FROM PACU. PT A+O X3, HAVING CONVERSATION WITH DAUGHTER AT THE BEDSIDE. PT NOT YET UP FROM BED, ABLE TO PUSH AGAINST THIS RNs HANDS WITH EACH EXTREMETY. LUNG SOUNDS CLEAR. HEART TONES REGULAR. TRACE EDEMA IN BLE AND BUE REMAINS, PULSES STRONG IN ALL EXTREMETIES, CAP REFILL BRISK IN ALL EXTREMETIES. ABDOMEN MILDLY DISTENDED, PT DENIES TENDERNESS UPON PALPATION. ACTIVE BOWEL TONES IN LUQ ACTIVE, ALL OTHER QUANDRANTS HYPOACTIVE AT THIS TIME. NG TUBE IN PLACE CONNECTED TO LOW INTERMITTENT SUCTION. NG TUBE SECUREMENT DEVICE IN PLACE, NG TUBE MARKED AT NARE. PT REMAINS NPO, SPONGES GIVEN TO WET MOUTH PT C/O DRY MOUTH AND THROAT. CHAPSTICK PROVIDED TO ASSIST WITH DRYNESS POST-OP. PALACIOS CATHETER IN PLACE SINCE ARRIVAL TO UNIT, URINE YELLOW WITH SMALL AMOUNT OF SEDIMENT PRESENT. SMALL TEAR ON LEFT PANNIS PRESENT UPON ARRIVAL NOTED BY THIS RN AND NAYA MAHER. SURGICAL DRESSING C/D/I UPON TWO RN SKIN ASSESSMENT AT ARRIVAL. PT BEGINS TO FALL ASLEEP AFTER THIS RN COMPLETES ASSESSMENT AND IS STILL IN ROOM, O2 SATURATION DECREASES TO 87%, PT WAKES UP AND WITH DEEP BREATHING INCREASES O2 SATURATION TO 96%. PT BEGINS TO FALL ASLEEP AGAIN AND O2 SATURATION DECREASES TO 88%, 1L O2 VIA NC PLACED, O2 SATURATION INCREASES TO 90%. O2 INCREASED TO 2L, O2 SATURATION INCREASES TO >93%. EDUCATION ABOUT DEEP BREATHING AND O2 USE TO PT AND DAUGHTER, BOTH VERBALIZE UNDERSTANDING. PT STATES NO FURTHER NEEDS AT THIS TIME, CALL LIGHT WITHIN REACH, SCDs IN PLACE, BED RAILS UP, DAUGHTER REMAINS AT THE BEDSIDE.
--- NOTE | 2023-07-17 16:15 | NUR ---
PT TITRATED TO 1L O2 FROM 2L, O2 SATURATION >92%. PT STATES NO NEEDS AT THIS TIME, FAMILY AT THE BEDSIDE, CALL LIGHT WITHIN REACH.
--- NOTE | 2023-07-17 16:30 | NUR ---
PT TITRATED TO RA, BEGINS TO GO TO SLEEP, O2 SATURATION 89%, O2 TITRATED BACK TO 1L NC, O2 SATURATION >92%. PT STATES SHE WOULD LIKE TO REST AT THIS TIME, STATES NO FURTHER NEEDS, CPOX REMAINS IN PLACE, CALL LIGHT WITHIN REACH.
--- NOTE | 2023-07-17 20:44 | NUR ---
REPOSITIONED IN BED, HOB ELEVATED, R IDAE NGT IN PLACE PATENT TO LIW3S, MEDICATED WITH DILAUDID 1MG IV 5/10 ABD PAIN. MIDLINE ABD INCISION CDI. VERY VLADIMIR BOWEL TONES. O2 1LNC TO COMFORT, CPOX IN PLACE POST OP. IV LW INDILTRATED, DC'D AND NEW ONE TO BE RESTARTED BY PRESS SHOP SUPERVISOR. F/C PATENT DRAINING SMALL AMOUNTS LIGHT LAUREN COLORED URINE. SCDS IN PLACE. PT NPO, DOES OWN ORAL CARE.
--- NOTE | 2023-07-18 00:09 | NUR ---
RESTING, NO DISTRESS, R NARE NGT TO LIWS DRAINING SMALL AMOUNT BROWN THICK LIQUIDS, O2 1LNC, CPOX POST OP. IVF INFUSING R HAND PATENT, F/C PATENT, DRAINING SMALL AMOUNTS OF LIGHT LAUREN URINE. NO S/SX DISTRESS, HOB ELEVATED, SCDS IN PLACE
[2023-07-18 02:38] VITALS: BP 105/51
--- NOTE | 2023-07-18 02:48 | NUR ---
AWAKES EASILY, HOB ELEVATED, R NARE NGT IN PLACE, DRAINING THICK LAUREN COLORED DRAINAGE, O2 1LNC PER COMFORT, POST OP CPOX IN PLACE. MIDLINE ABD DRESSING IN PLACE CDI. RARE VLADIMIR BOWEL TONES, TENDER, F/C DRAINING SMALL AMOUNTS LIGHT LAUREN COLORED URINE, F/C CARE DONE. SCDS IN PLACE, DENIES C/O PAIN. ivf INFUSING. NO C/O N/V
--- NOTE | 2023-07-18 04:08 | NUR ---
Resting, NGT patent to COLETTE, f/c patent, IVF infusing, no s/sx discomfort or pain, post op CPOX in plce, O2 1LNC
[2023-07-18 05:23] LABS: BASOPHILS 0.1 % (0-2); EOSINOPHILS 0.1 % (0-6); HEMATOCRIT 35.2 % (35.0-50.0); HEMOGLOBIN 11.8 g/dL (12.0-18.0); LYMPHOCYTES 12.2 % (24-44); MCH 31.6 (27-36); MCHC 33.6 g/dl (30-36); MCV 93.9 fl (81-99); MONOCYTES 5.1 % (0-12); NEUTROPHILS 82.5 % (39-80); PLATELET COUNT 242 K/uL (140-440); RBC 3.75 M/ul (4.3-5.7); RDW 13.5 (10.5-15.0)
[2023-07-18 05:33] LABS: ANION GAP 13.7 (7-21); BUN/CREATININE RATIO 15.85 (6.0-28.6); CALCIUM 7.6 mg/dL (8.5-10.1); CREATININE, SERUM 0.82 mg/dL (0.55-1.02); POTASSIUM 3.7 mmol/L (3.5-5.1)
[2023-07-18 05:37] LABS: MAGNESIUM 2.4 mg/dL (1.8-2.4); PHOSPHORUS, INORGANIC 2.8 mg/dL (2.5-4.9)
[2023-07-18 06:10] VITALS: BP 111/52
--- NOTE | 2023-07-18 06:41 | NUR ---
Pt resting, awakes easily. , O2 1LNC in place, post op CPOX, IVF infusing. R nare NGT paten to LIWS, draining small amount of thick brown/dark tonia drainage. f/c patent. daraining small amount light tonia urine. midline abd incision covered with dressing CDI, rare VLADIMIR. denies passing gas. Was medicate x1 with Dilaudid, effective. IV infiltrated, restarted on R hand, was repositioned, cooperative
--- NOTE | 2023-07-18 07:15 | NUR ---
RECEIVED REPORT FROM NAYA GUNTER. PT AWAKE IN BED. PHOTO CONSENT SIGNED, PHOTO OF TEAR ON L SIDE OF PANNIS TAKEN AND PLACED IN CHART. TEAR MEASURED, COVERED WITH ALLEVYN. PT DENIES PAIN/NAUSEA AT THIS TIME. PT STATES NO NEEDS AT THIS TIME, CALL LIGHT WITHIN REACH, BED RAILS UP. NG TUBE CONNECTED TO LOW INTERMITENT SUCTION PER ORDER.
--- NOTE | 2023-07-18 07:30 | OR ---
[facility] [address], [place] [address] Signed DATE OF OPERATION: 07/17/2023 SURGEON: Rohini Bearden MD PREOPERATIVE DIAGNOSIS: Small bowel diverticulitis x1. POSTOPERATIVE DIAGNOSIS: Small bowel diverticulitis x1. PROCEDURES: 1. Laparotomy. 2. Moderate lysis of adhesions. 3. Small bowel resection x1 with end-to-end hand-sewn anastomosis in two layers. ESTIMATED BLOOD LOSS: None. FINDINGS: Tiara indeed had a small bowel diverticulum on the anti-mesenteric side with a contained abscess and inflammatory changes in the mesentery. The bowel wall is edematous, but not indurated. INDICATIONS: Tiara is a 72-year-old obese female, who came to the emergency room yesterday with a history of what initially was right upper quadrant abdominal pain, nausea and vomiting. She had her laparoscopic cholecystectomy sometime before [address] Taylor. 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 She came back in 2019 with a large ventral hernia above the umbilicus, requiring repair by Dr. Taylor using left component separation and submuscular Prolene mesh placement. She has never had a small bowel resection or colectomy. She just had upper and lower endoscopy in April of [address] Taylor[address] She told me everything went fine. When she came to the emergency room, her white count was elevated to 18,000. She seemed to be tender in the right side. A CT scan showed a moderate hiatal hernia, but she has a collection in the left mid abdominal small bowel mesentery and it was communicating with that short-segment of small bowel, bowel seemed to be thickened. It was most consistent with a small bowel diverticulitis. I have been asked to admit her as a general surgeon on-call. She did receive IV fluids and cefepime and Flagyl. We also replaced her electrolytes. I had reviewed the records and met with Tiara and her yesterday and this morning. I explained that this really needed surgery to resect that area small bowel for definitive Electronically Signed By: ROHINI BEARDEN MD 07/18/23 0730 PATIENT NAME: TIARA GROSS OPERATIVE REPORT DATE OF : 50 REPORT #: [id number] PHYSICIAN: ROHINI BEARDEN MD PCP: NARESH HORTON REPORT IS CONFIDENTIAL AND NOT TO BE RELEASED WITHOUT AUTHORIZATION [facility] [address] [place] [id number] Signed treatment. They understand the nature of the surgery along with its risks including but not limited to bleeding, infection, scarring, change in contour of the skin, damage to bowel, anastomotic leak and other unforeseen comorbidities. They had expressed understanding and wished to proceed. PROCEDURE IN DETAIL: Tiara was taken into the operating room and placed in the supine position under general endotracheal tube anesthesia. She was on preoperative cefepime and Flagyl. She was on preoperative Lovenox. SCDs were in place. Martinez catheter was inserted with return of clear yellow urine without difficulty. She had been prepped and draped in the usual sterile fashion. We utilized her previous midline incision, and we went down below the umbilicus about 6-8 cm. We were able to enter the abdomen below the umbilicus, which is below the area of the Prolene mesh. It took some time to get through some adhesions of the small bowel and omentum as we worked cephalad to the umbilicus. I was able to palpate the area indurated small bowel and eventually with some additional lysis of adhesions was able to elevate it up into the incision. Indeed, she had an area probably 3 cm next to the small bowel on the anti-mesenteric side and then around that was inflamed. We took out a wedge shape area of the mesentery and the small bowel. We used our linear stapler proximal and distal to the area and then used Pean clamps and 0-Vicryl ties for the mesentery. We brought the two pieces of bowel together in the end, and we did a hand-sewn anastomosis in two layers with 3-0 Vicryl and 3-0 silk sutures. Our circulating nurse cut the specimen opened on the table. Indeed, there was a diverticulum, probably a close to a centimeter in diameter, communicating with this pocket. Otherwise, the mucosa was unremarkable. We then closed the mesenteric rent with running 3-0 Vicryl on the front and back of the mesentery. The bowel had been returned to the abdomen. She did have some turbid fluid in the abdomen and it was irrigated and suctioned out until clear. We then brought the midline fascia back together with interrupted #2 [id number] Prolene sutures. This included bringing the Prolene mesh back together as well. The wound was irrigated and suctioned out until clear. We brought the skin and dermis back together with interrupted 3-0 subcuticular Monocryl sutures. The skin edges reapproximated with cristi. Dry gauze and tape was then applied. After this, our nurse spiritual advisor applied bilateral subcostal and bilateral TAP blocks for postoperative pain control. Tiara was then awakened from anesthesia, extubated in the OR, and taken to recovery room with her NG tube and her Martinez catheter in place. Rohini Bearden MD Electronically Signed By: ROHINI BEARDEN MD 07/18/23 3686 PATIENT NAME: TIARA GROSS OPERATIVE REPORT DATE OF : 50 REPORT #: [id number] PHYSICIAN: ROHINI BEARDEN MD PCP: NARESH HORTON REPORT IS CONFIDENTIAL AND NOT TO BE RELEASED WITHOUT AUTHORIZATION [address] [address] Signed [facility] /[id number] cc: Patient Chart DEWAYNE Gutierrez MD Copies: NARESH HORTON ANDREW L MD ~ Electronically Signed By: ROHINI BEARDEN MD 07/18/23 0730 PATIENT NAME: TIARA GROSS OPERATIVE REPORT DATE OF : 50 REPORT #: [id number] PHYSICIAN: ROHINI BEARDEN MD PCP: NARESH HORTON REPORT IS CONFIDENTIAL AND NOT TO BE RELEASED WITHOUT AUTHORIZATION
--- NOTE | 2023-07-18 07:40 | NUR ---
RECEIVED REPORT FROM NAYA ROBLES. PT RESTING IN BED WITH EYES CLOSED, BIPAP IN PLACE. CALL LIGHT WITHIN REACH, BED RAILS UP.
--- NOTE | 2023-07-18 07:53 | NUR ---
RT TO BEDSIDE.
--- NOTE | 2023-07-18 08:23 | NUR ---
PT REPORTS NAUSEA, ZOFRAN RECEIVED ORDERED, SEE EMAR.
--- NOTE | 2023-07-18 09:45 | NUR ---
PT AWAKE IN BED, DENIES PAIN AT THIS TIME. LUNG SOUNDS CONTINUE TO BE DIMINISHED IN LOWER LOBES, I.S. DEVICE AT THE BEDSIDE, PT ENCOURAGED TO USE AND ENCOURAGED TO PRACTICE DEEP BREATHING, PT VERBALIZES UNDERSTANDING. EDEMA REMAINS TRACE IN BLE AND BUE, SCDs IN PLACE, EXTREMETIES ELEVATED IN BED. ABDOMEN REMAINS MILDLY DISTENDED, PT DENIES TENDERNESS AT THIS TIME, ACTIVE BOWEL TONES, PT DENIES NAUSEA. NG TUBE SECUREMENT DEVICE IN PLACE, NG TUBE CONNECTED TO LOW INTERMITTENT SUCTION PER ORDER, BROWN CONTENTS IN SUCTION CONTAINER AND SUCTION TUBING. PT TOLERATING NPO WELL. PALACIOS CATHETER REMAINS IN PLACE DRAINING QUANTITY SUFFICIENT CLEAR YELLOW URINE. SKIN TEAR ON LEFT SIDE OF PANNUS REMAINS, NO DRAINAGE PRESENT, PICTURES TAKEN WITH MARKET RESEARCH ANALYST NURSE, SEE WOUND ASSESSMENT, ORDERED CREAM PLACED. DISCUSSED PLAN WITH PT TO GET UP TO CHAIR OR FOR WALK TODAY, PT VERBALIZES UNDERSTANDING. PT STATES NO FURTHER NEEDS AT THIS TIME, DAUGHTER AT THE BEDSIDE, CALL LIGHT WITHIN REACH, BED RAILS UP.
[2023-07-18 09:49] VITALS: BP 121/52
--- NOTE | 2023-07-18 10:45 | NUR ---
PT DECLINES GETTING UP TO CHAIR AT THIS TIME, STATES SHE WOULD LIKE TO REST. EDUCATION ON IMPORTANCE OF MOVEMENT TO PLAN OF CARE AND PAIN CONTROL. PT STATES NO FURTHER NEEDS AT THIS TIME, CALL LIGHT WITHIN REACH, BED RAILS UP.
--- NOTE | 2023-07-18 12:44 | NUR ---
PATIENT IS SITTING UPRIGHT IN BED WITH NG TUBE IN PLACE. NG DRAINING INTO COLLECTION CANISTER. PATIENT WITH COMPLAINTS OF DRY EYES. PRIMARY RN BRANDIN FOX NOTIFIED. PATIENT STATED NO FURTHER NEEDS AT THIS TIME. CALL LIGHT AND PERSONAL BELONGINGS ARE WITHIN REACH.
--- NOTE | 2023-07-18 13:32 | NUR ---
PT REPORTS RLQ PAIN 5/10, DILAUDID RECEIVED ORDERED, SEE EMAR. VISITOR X1 IN ROOM. CALL LIGHT IN REACH. NG DRAINS GREEN/BROWN FLUID. IV INFUSES, PATENT, SITE C/D/I, NO REDNESS, SWELLING OR LEAKING NOTED.
--- NOTE | 2023-07-18 13:41 | NUR ---
COMPAZINE RECEIVED ORDERED FOR PT REPORT OF NAUSEA.
[2023-07-18 13:54] VITALS: BP 113/55
--- NOTE | 2023-07-18 14:30 | NUR ---
PT AWAKENS TO RN TOUCH, ABDOMEN UNCHANGED FROM MORNING ASSESSMENT, WOUND EDGES CONTINUE TO BE WELL APPROXIMATED, NO REDNESS/SWELLING. SKIN TEAR ON PANNUS UNCHANGED. PT DENIES PAIN/NAUSEA. PT STATES NO FURTHER NEEDS AT THIS TIME, CALL LIGHT WITHIN REACH, BED RAILS UP, DAUGHTER AT THE BEDSIDE.
[2023-07-18 17:21] LABS: PREALBUMIN 12.1 mg/dL (20.0-40.0)
[2023-07-18 17:44] VITALS: BP 108/54
--- NOTE | 2023-07-18 18:40 | NUR ---
PT RESTING IN BED WITH EYES CLOSED, AWAKENS TO TOUCH. PT DENIES PAIN/NAUSEA AT THIS TIME. PT ENCOURAGED TO GET UP TO CHAIR, PT REFUSES AT THIS TIME STATING "I WILL A LITTLE LATER THIS EVENING". PT EDCUATION REVIEWED ON MOVEMENT RELATED TO HEALING AND PAIN CONTROL, PT VERBALIZES UNDERSTANDING.
--- NOTE | 2023-07-18 19:21 | NUR ---
REPORT RECEIEVED FROM DAY SHIFT RN. PT LYING IN BED ALERT AND ORIENTED. DENIES NEEDS AT THIS TIME. CALL LIGHT IN REACH. WHITE BOARD UPDATED.
[2023-07-18 19:33] VITALS: BP 140/61
--- NOTE | 2023-07-18 20:06 | NUR ---
EVENING ASSESSMENT COMPLETE. PT REPORTS ABD PAIN 5/10. PRN FOR PAIN ADMIN BY FUDGER. PT DENIES NAUSEA. NGT TO LIWS WITH BROWN DRAINAGE. ABD SOFT. BOWEL TONES ACTIVE. PT REPORTS FLATUS. MIDLINE ABD INCISION WELL APPROXIMATED WITH PAULA INTACT. NO REDNESS OR DRAINAGE NOTED. PALACIOS PATENT WITH YELLOW URINE. SCD'S IN PLACE. ASSISTED PT TO REPOSITION. PT DENIES QUESTIONS OR CONCERNS. CALL LIGHT IN REACH.
--- NOTE | 2023-07-18 22:10 | NUR ---
EMPTIED PALACIOS. PALACIOS CARE DONE.
--- NOTE | 2023-07-18 22:56 | NUR ---
cheese production supervisor answered pt call light cheese production supervisor assisted pt off the commode pt used waker and two purson assist.
--- NOTE | 2023-07-18 23:11 | NUR ---
PT RESTING IN BED WITH EYES CLOSED. RESPIRATIONS EVEN. HOB ELEVATED. CALL LIGHT IN REACH.
[2023-07-19] VITALS (7 sets, daily range): BP systolic 117–146; BP diastolic 46–64
--- NOTE | 2023-07-19 02:07 | NUR ---
PT RESTING WITH EYES CLOSED. AWAKENS EASILY. IV ABX INFUSING PER ORDER. PT REPORTS ABD PAIN 4/10 AND "INCREASING" PRN FOR PAIN ADMIN PER EMAR. WHILE ADMINISTERING PRN SLOW IV PUSH PT BECAME NAUSEOUS, FLUSHED, HR NOTED TO BRIEFLY BE 42 THEN UP TO THE LOW 90'S BRIEFLY BEFORE RETURNING TO THE 60'S. PT REPORTS FEELING "PANICKY" WITH THE NAUSEA. VS OBTAINED, WNL. PT DENIES CHEST PAIN OR SOB. REPORTS ALL SYMPTOMS RESOLVED. ASSESSMENT COMPLETE. PT DENIES FURTHER NEEDS. CALL LIGHT IN REACH.
--- NOTE | 2023-07-19 05:14 | NUR ---
LAB IN ROOM FOR MORNING DRAW. VS AND I&O OBTAINED. NGT PATENT WITH 200 ML GREENISH BROWN DRAINAGE. PALACIOS PATENT WITH CONCENTRATED URINE. PT REPORTS PAIN IS TOLERABLE AT THIS TIME. DENIES NEEDS. CALL LIGHT IN REACH.
[2023-07-19 05:20] LABS: BASOPHILS 0.4 % (0-2); EOSINOPHILS 3.4 % (0-6); HEMATOCRIT 34.4 % (35.0-50.0); HEMOGLOBIN 11.2 g/dL (12.0-18.0); LYMPHOCYTES 24.8 % (24-44); MCH 30.9 (27-36); MCHC 32.5 g/dl (30-36); MCV 95.3 fl (81-99); MONOCYTES 8.3 % (0-12); NEUTROPHILS 63.1 % (39-80); PLATELET COUNT 245 K/uL (140-440); RBC 3.61 M/ul (4.3-5.7); RDW 13.8 (10.5-15.0)
[2023-07-19 05:36] LABS: ANION GAP 10.6 (7-21); BUN/CREATININE RATIO 14.1 (6.0-28.6); CALCIUM 7.6 mg/dL (8.5-10.1); CREATININE, SERUM 0.78 mg/dL (0.55-1.02); MAGNESIUM 2.1 mg/dL (1.8-2.4); PHOSPHORUS, INORGANIC 2.1 mg/dL (2.5-4.9); POTASSIUM 3.6 mmol/L (3.5-5.1)
--- NOTE | 2023-07-19 07:26 | NUR ---
DR BEARDEN IN TO SEE PT AT TIME OF SHIFT REPORT. STRONGLY URGED TO GET UP OUT OF BED. PT RESTING EYES CLOSED AT THIS TIME. CALL LIGHT AND NEEDED ITEMS IN REACH
--- NOTE | 2023-07-19 09:24 | NUR ---
SUZANNE FERNANDEZ'Beth PER ORDERS. PT REMAINS RESTING IN BED EYES CLOSED. DECLINES OFFER TO GET UP AT THIS TIME. STATES ABDOMEN IS "STARTING TO HURT" AGREES TO NOTIFY STAFF WHEN SHE FEELS SHE WANTS PAIN RELIEF. ICE CHIPS TO BEDSIDE.
--- NOTE | 2023-07-19 09:48 | NUR ---
PATIENT ALERT AND ORIENTED, SITTING UP IN BED. NG TUBE IN PLACE. PATIENT DEMOGRAPHIC VREIFIED WITH HER. STATES SHE LIVES IN A SINGLE LEVEL HOME, WITH STEPS TO GET INSIDE, WITH SPOUSE. PATIENT HAS NOT PREVIOUSLY HAD ISSUES WITH STEPS. DENIES DME'S. NORMALLY DRIVES, IS ABLE TO ASSIST WITH TRANSPORTATION. DENIES FINANCIAL HARDSHIP. DENIES NEEDS AT AT THIS TIME. INSTRUCTED TO NOTIFY STAFF IF NEEDS ARISE. VERBALIZES UNDERSTANDING.
--- NOTE | 2023-07-19 09:54 | NUR ---
PT UP TO THE CHAIR STAFF ASSIST WITH PERSONAL CARES
--- NOTE | 2023-07-19 10:32 | NUR ---
PT HAS BEEN ON RA SINCE UP TO THE CHAIR SATS REMAIN LOW 90'S PULSE OX IN PLACE. PT GIVEN TORDOL FOR C/0 4/10 ABDOMINAL PAIN. C/O NAUSEA ZOFRAN ADMINISTERED PT DRY HEAVES NO EMESIS. NG IN PLACE DRAINING BROWN COLORED FLUID
--- NOTE | 2023-07-19 11:32 | NUR ---
PT TO THE TOILET UNABLE TO VOID RETURNS TO RESTING IN BED. SHE DENIES DISCOMFORT OR FEELING FEELING FULL, STATES SHE JUST FELT LIKE SHE COULD GO. PT INSTRUCTED TO NOTIFY STAFF IF SHE GETS UNDOMFORTABLE OR FEELS LIKE SHE IS VERY FULL. IS PRESENT IN THE ROOM
--- NOTE | 2023-07-19 11:55 | NUR ---
UR NOTE MCG GENERAL SURGERY OR PROCEDURE GRG 07/16/23 MET CLINICAL INDICATIONS FOR PROCEDURE
--- NOTE | 2023-07-19 13:09 | NUR ---
PT RESTING IN BED FRESH ICE SHIPS TO BEDSIDE. PT DENIES NEEDS
--- NOTE | 2023-07-19 13:58 | NUR ---
pT LAYING IN BED, REFUSES TO GET INTO CHAIR UNTIL A BIT LATER. CALL LIGHT WITHIN REACH NO COMPLAINTS
--- NOTE | 2023-07-19 14:38 | NUR ---
PATIENT UP TO VOID 250ML TO COMMODE, AMBULATED DOWN ONE SIDE OF HALLWAY AND BACK. PATIENT BACK IN BED, LINES RESUMED.
--- NOTE | 2023-07-19 16:18 | NUR ---
Pt was able to walk with CNAs around the unit. Pt walked stable w/o assitance no complaints while walking. Pt requested to lay back in bed when the walk was over. No concerns at this time
--- NOTE | 2023-07-19 16:45 | NUR ---
PT UP AND AMBULATES THE TRUONG WITH STAFF. RETURNS TO RESTING IN BED. R/T IN TO SEE PT 02 AND SATS DISCUSSED. PT CONTINUES LOW 90S ON RA. PT USING I/S WITH R/T INSTRUCTIONS
--- NOTE | 2023-07-19 18:27 | NUR ---
PT AGREES HER NAUSEA HAS PASSED "FOR NOW" RESTING EYES CLOSED DENIES NEEDS OF
--- NOTE | 2023-07-19 19:27 | NUR ---
REPORT RECEIVED FROM DAY SHIFT RN. PT LYING IN BED ALERT AND ORIENTED. DENIES NEEDS. WHITE BOARD UPDATED. CALL LIGHT IN REACH.
--- NOTE | 2023-07-19 20:30 | NUR ---
PATIENT WALKED AROUND THE NURSE'S STATION X1 WITH THIS TESTER WAFER SUBSTRATE. V/S AND I&O'S COMPLETED. PATIENT SAT ON THE CHAIR FOR A FEW MINUTES THEN WENT TO BED. NGT IS BACK ON. CPOX AND SCD'S ARE ON. DENIES FURTHER NEEDS OR CONCERN. BLOOD SUGAR CHECK DONE. CALL LIGHT WITHIN REACH.
--- NOTE | 2023-07-19 21:30 | NUR ---
EVENING ASSESSMENT COMPLETE. SCHEDULED MEDS ADMIN PER EMAR. PRN FOR PAIN ADMIN FOR GENERAL "DISCOMFORT" PT DENIES NAUSEA. NGT TO LIWS WITH BROWN DRAINAGE. MIDLINE ABD INCISION WITH PAULA INTACT. EDGES WELL APPROXIMATED. NO REDNESS OR DRAINAGE NOTED. BOWEL TONES HYPOACTIVE. PT DENIES FLATUS. IV ABX INFUSING PER ORDER. PT DENIES QUESTIONS OR CONCERNS AT THIS TIME. CALL LIGHT IN REACH.
--- NOTE | 2023-07-19 22:30 | NUR ---
PT RESTING IN BED WITH EYES CLOSED. RESPIRATIONS EVEN. CALL LIGHT IN REACH.
--- NOTE | 2023-07-20 01:15 | NUR ---
CALL LIGHT ANSWERED. PT REPORTS NAUSEA. PRN FOR N/V ADMIN PER EMAR. NGT SECUREMENT DEVICE REPLACED, PT VERITO WELL. NO FURTHER NEEDS AT THIS TIME.
[2023-07-20 01:47] VITALS: BP 137/64
--- NOTE | 2023-07-20 02:10 | NUR ---
SCHEDULED MEDS ADMIN PER EMAR. PT REPORTS FEELING "RESTLESS" AND UNABLE TO SLEEP. PRN FOR INSOMNIA ADMIN PER EMAR. ASSMENT COMPLETE. BOWEL TONES HYPOACTIVE. PT DENIES FLATUS. NGT PATENT WITH BROWN DRAINAGE. FEW ICE CHIPS PROVIDED FOR COMFORT. NO FURTHER NEEDS.
--- NOTE | 2023-07-20 03:00 | NUR ---
PATIENT WAS UP TO USE THE BATHROOM. PATIENT WENT TO WALK AROUND THE HALLWAY X1 WITH THIS MOLDING MACHINE OPERATOR. PATIENT IS BACK IN BED. NGT, CPOX AND SCD'S ARE BACK ON. CALL LIGHT WITHIN REACH. PATIENT DENIES FURTHER NEEDS OR CONCERNS.
--- NOTE | 2023-07-20 03:10 | NUR ---
PT STANDING AT SIDE OF BED. C/O "RESTLESS LEGS" PT UP TO AMB TRUONG WITH FOOD SERVICE MANAGER ASSIST.
--- NOTE | 2023-07-20 04:26 | NUR ---
PT RESTING IN BED WITH EYES CLOSED. RESPIRATIONS EVEN. SpO2 92% ON RA. HR 70'S.
[2023-07-20 07:06] LABS: BASOPHILS 0.6 % (0-2); EOSINOPHILS 7.8 % (0-6); HEMATOCRIT 34.2 % (35.0-50.0); HEMOGLOBIN 11.6 g/dL (12.0-18.0); LYMPHOCYTES 36.7 % (24-44); MCV 94.3 fl (81-99); MONOCYTES 10.4 % (0-12); NEUTROPHILS 44.5 % (39-80); PLATELET COUNT 297 K/uL (140-440); RBC 3.62 M/ul (4.3-5.7); RDW 13.2 (10.5-15.0)
--- NOTE | 2023-07-20 07:13 | NUR ---
REPORT FROM Aletha MELLO RN. PATIENT AMBULATING IN HALLWAY WITH STAFF.
[2023-07-20 07:17] LABS: ANION GAP 10.2 (7-21); BUN/CREATININE RATIO 11.11 (6.0-28.6); CREATININE, SERUM 0.72 mg/dL (0.55-1.02); POTASSIUM 3.2 mmol/L (3.5-5.1)
[2023-07-20 07:22] LABS: CALCIUM 8.3 mg/dL (8.5-10.1)
[2023-07-20 08:02] VITALS: BP 123/53
--- NOTE | 2023-07-20 09:53 | NUR ---
ROUNDS. PT INDICATED DESIRE FOR REST. SHORT VISIT. PROVIDED SILENT PRAYER.
--- NOTE | 2023-07-20 11:00 | NUR ---
No plan for dc today. Pt cont. with NG tube in place.
--- NOTE | 2023-07-20 11:45 | NUR ---
PATIENT AMBULATED TO BATHROOM WITH SOIL TECHNICIAN. RETURNS TO BED. NG TUBE NOTED TO BE PULLED BACK AND NOSE ADHESIVE LOOSE. NG ADVANCED 2 CM AND NEW ADHESIVE APPLIED.
--- NOTE | 2023-07-20 11:58 | NUR ---
PATIENT UP TO GO TO THE BATHROOM, TOLERATED AMBULATION WELL, STEADY GAIT. PT BACK IN BED. NG TUBE STICKER COMING OFF, PRIMARY RN REPLACED STICKER. SUCTIONING RECONNECTED. CALL LIGHT LEFT WITHIN REACH. NO OTHER NEEDS AT THIS TIME. SHARMIN ALICEA SN
[2023-07-20 13:16] VITALS: BP 147/62
--- NOTE | 2023-07-20 14:39 | NUR ---
PATIENT ALERT AND ORIENTED. DAUGHTER IN ROOM. REMAINS WITHOUT FLATUS OR ACTIVE BOWEL SOUNDS. NG CLAMPED AT THIS TIME SO PATIENT MAY AMBULATE TO BATHROOM.
[2023-07-20 17:33] VITALS: BP 150/67
--- NOTE | 2023-07-20 19:41 | NUR ---
REPORT RECEIVED FROM DAY SHIFT RN. PT SITTING ON SIDE OF BED ALERT AND ORIENTED. SBA TO BR TO VOID. BACK TO BED, VERITO WELL. REPORTS ABD PAIN IS TOLERABLE. NO FURTHER NEEDS. WHITE BOARD UPDATED. CALL LIGHT IN REACH.
[2023-07-20 20:00] VITALS: BP 146/63
--- NOTE | 2023-07-20 20:53 | NUR ---
20G 1.75" USIV PLACED IN LFA, 1 ATTEMPT. PT TOLERATED WELL. IV MEDS AND FLUIDS INFUSING PER ORDER. LEAKING RH IV REMOVED WNL. PT SITTING UP ON EDGE OF BED. CALL LIGHT IN REACH.
--- NOTE | 2023-07-20 21:07 | NUR ---
EVENING ASSESSMENT COMPLETE. SCHEDULED MEDS ADMIN PER EMAR. PT DENIES NAUSEA. NGT PATENT WITH BROWN DRAINAGE. PRN FOR PAIN ADMIN FOR DISCOMFORT. MIDLINE ABD INCISION WELL APPROXIMATED WITH PAULA INTACT. NO REDNESS OR DRAINAGE NOTED. BOWEL TONES HYPOACTIVE. PT DENIES FLATUS. NGT SECUREMENT DEVICE REPLACED. PT DENIES FURTHER NEEDS. CALL LIGHT IN REACH.
--- NOTE | 2023-07-20 21:45 | NUR ---
PATIENT WALKED AROUND THE NURSE'S STATION X1 WITH THIS FACTORY ENGINEER. PATIENT WENT TO THE BATHROOM BEFORE HEADING TO BED. VOIDED 300ML YELLOW URINE. NGT BACK ON IN INTERMITTENT WALL SUCTION. CALL LIGHT AND SIDE TABLE WITHIN REACH. NO OTHER NEEDS AT THIS TIME.
--- NOTE | 2023-07-20 23:00 | NUR ---
IV PUMP ALARMING. ISSUE RESOLVED. PT REPORTS NOT BEING ABLE TO SLEEP. PRN FOR INSOMNIA ADMIN PER EMAR. NO FURTHER NEEDS. CALL LIGHT IN REACH. BED ALARM FOR SAFETY.
[2023-07-21] VITALS (8 sets, daily range): BP systolic 124–149; BP diastolic 57–66
--- NOTE | 2023-07-21 02:43 | NUR ---
PT RESTING WITH EYES CLOSED. AWAKENS EASILY. VS OBTAINED. SCHEDULED MEDS ADMIN PER EMAR. NO NEEDS AT THIS TIME. CALL LIGHT IN REACH.
--- NOTE | 2023-07-21 04:27 | NUR ---
PATIENT WAS UP TO USE THE BATHROOM. PATIENT IS NOW BACK IN BED. NGT BACK ON. DENIES OTHER NEEDS AT THIS TIME.
[2023-07-21 05:44] LABS: BASOPHILS 0.9 % (0-2); EOSINOPHILS 11.1 % (0-6); HEMOGLOBIN 11.6 g/dL (12.0-18.0); LYMPHOCYTES 33.7 % (24-44); MCH 31.9 (27-36); MCV 94.1 fl (81-99); NEUTROPHILS 44.3 % (39-80); PLATELET COUNT 289 K/uL (140-440); RBC 3.62 M/ul (4.3-5.7); RDW 13.1 (10.5-15.0)
--- NOTE | 2023-07-21 05:59 | NUR ---
I&O OBTAINED. NGT WITH 150 ML GREEN DRAINAGE. INCREASED BOWEL TONES NOTED THIS AM. PT DENIES FLATUS, REPORTS "GURGLING" THIS AM. FEW ICE CHIPS PROVIDED FOR COMFORT. NO FURTHER NEEDS AT THIS TIME. CALL LIGHT IN REACH.
[2023-07-21 06:02] LABS: ANION GAP 12.1 (7-21); BUN/CREATININE RATIO 9.23 (6.0-28.6); CALCIUM 8.1 mg/dL (8.5-10.1); CREATININE, SERUM 0.65 mg/dL (0.55-1.02); MAGNESIUM 1.8 mg/dL (1.8-2.4); PHOSPHORUS, INORGANIC 2.9 mg/dL (2.5-4.9); POTASSIUM 3.1 mmol/L (3.5-5.1)
--- NOTE | 2023-07-21 07:30 | NUR ---
REPORT RECEIVED FROM NAYA CALDERON. PT RESTING IN BED WITH EYES CLOSED, CALL LIGHT WITHIN REACH. ASSUMING CARE OF PT.
--- NOTE | 2023-07-21 08:20 | NUR ---
NG TUBE REMOVED, TIP INTACT. PT TOLERATED WELL.
--- NOTE | 2023-07-21 10:43 | NUR ---
PT AWAKE AND UP TO CHAIR VISITING WITH . PT DENIES PAIN OR NAUSEA AT THSI TIME. EDEMA REMAINS TRACE IN BLE AND BUE WITH GENERALIZED IN THE R FOREARM. PT WALKING INDEPENDENTLY IN ROOM, SCDs NOT ON WHILE PT UP TO CHAIR AND WALKING. ABDOMEN APPEARS MILDLY DISTENDED, MILDLY TENDER TO PALPATION. BOWEL TONES REMAIN PRESENT, BUT HYPOACTIVE. NG TUBE REMOVED THIS MORNING, PT CONTINUES TO TOLERATE REMOVAL WELL. PT HAS QUESTIONS ABOUT WHEN SHE WILL BE ABLE TO EAT AGAIN, EDUCATION ON DIET PROGRESSION PLANS, PT AND VERBALIZE UNDERSTANDING. PT C/O ITCHING ON BACK, RED SPOTS NOTED, PT STATES THESE SPOTS ARE PRESENT NORMALLY, BUT THAT ONE IS "JUST ITCHY TODAY". PT STATES HER SKIN HAS BEEN ITCHY AFTER HOSPITAL STAY PREVIOSLY, SECOND RN IN TO ROOM TO EVALUATE SKIN, CREAM ORDERED APPLIED. MIDLINE INCISION, C/D/I. PAULA INTACT, INCISION CONTINUES TO BE OPEN TO AIR, EDGES WELL APPROXIMATED, NO REDNESS/SWELLING PRESENT. PT STATES NO FURTHER QUESTIONS OR NEEDS AT THIS TIME, CALL LIGHT WITHIN REACH, BED RAILS UP.
--- NOTE | 2023-07-21 10:45 | NUR ---
Spoke with pt and she denies needs. NG is out and is taking ice. I offered coloring books and color pencils. Pt denies needs.
--- NOTE | 2023-07-21 12:47 | NUR ---
Pt reported 1/10 pain, no itching, no nausea, no lightheadedness. Pt did not have any concerns or need anything. Offered to put bed rail up, pt wanted to keep left side bed rail down. Call light within reach.
--- NOTE | 2023-07-21 15:25 | NUR ---
PT DENIES ANY NAUSEA OR PAIN, STATES SHE WALKED 2 LAPS AROUND MEDSURG UNIT. PT STATES NO FURTHER NEEDS AT THIS TIME, CALL LIGHT WITHIN REACH.
--- NOTE | 2023-07-21 15:31 | NUR ---
THIS RN CALLS DR. BEARDEN TO UPDATE ON PT STATUS AND ASSESSMENT AND TO NOTIFY THAT PT IS ASKING ABOUT ADVANCING DIET, NO NEW ORDERS.
--- NOTE | 2023-07-21 20:23 | NUR ---
Pt up in chair, watching videos on her IPAD. room air, still NPO. does own oral care. Assessment done by Missy PERSON. no c/o pain. IVF infusing LFA. received scheduled Vasotec IV. LE dependent position, edema t ankles, 1+. Pleasnt and coop. Independent in room, voiding QS yellow urine
--- NOTE | 2023-07-21 22:30 | NUR ---
LAYING ON RIGHT SIDE WITH EYES CLOSED. IV FLUIDS INFUSSING. NO C/O OF PAIN OR DISCOMFORT AT THIS.
[2023-07-22] VITALS (8 sets, daily range): BP systolic 123–149; BP diastolic 51–74
--- NOTE | 2023-07-22 00:24 | NUR ---
PATIENT RESTING IN BED WITH EYES CLOSED. LAYING ON LEFT SIDE. CALL LIGHT WITHIN REACH. IV FLUIDS INFUSING, NO S/SX OF PAIN.
--- NOTE | 2023-07-22 02:20 | NUR ---
pt. resting in bed laying on back. Accu check complete. BP checked adminstered vasotec see emar. No c/o pain. Second assessment complete. Midline incision with cristi CDI well approximated, mild redness noted, bruising to lower abd noted.
--- NOTE | 2023-07-22 04:17 | NUR ---
patient restingin bed with eyes closed. IV running. No c/o pain or discomfort.
--- NOTE | 2023-07-22 05:33 | NUR ---
UP IN CHAIR. IND. IN ROOM. WALKED IN TRUONG THIS SHIFT. MIDLINE ABD INCISION CLOSED WITH PAULA. MILD REDNESS AROUND INCISION. BRUISING BELOW INCISION. NO CHANGES. RASH UNDER PANNUS HEALED. IVF/ABX INFUSSING. VOIDING QS, TRACE EDEMA BILAT ANKLES. NO C/O PAIN OR N/V. NOT PASSING GAS YET. NPO ICE CHIPS.
[2023-07-22 06:12] LABS: ANION GAP 12.3 (7-21); BUN/CREATININE RATIO 11.11 (6.0-28.6); CALCIUM 8.5 mg/dL (8.5-10.1); CREATININE, SERUM 0.72 mg/dL (0.55-1.02); MAGNESIUM 2.1 mg/dL (1.8-2.4); PHOSPHORUS, INORGANIC 2.9 mg/dL (2.5-4.9); POTASSIUM 3.3 mmol/L (3.5-5.1)
--- NOTE | 2023-07-22 06:32 | NUR ---
DR BEARDEN IN ROOM ASSESSING PT, NEW ORDERS TO DECREASE IVF TO 50, DONE AT THIS TIME, PT AWARE, NO C/O PAIN. SITTING EDGE OF BED.
--- NOTE | 2023-07-22 07:30 | NUR ---
RECEIVED REPORT FROM NAYA GUNTER. PT SITTING UP IN BED AWAKE. DENIES PAIN/NAUSEA, STATES NO NEEDS AT THIS TIME, CALL LIGHT WITHIN REACH.
--- NOTE | 2023-07-22 09:28 | PATH ---
[facility] [address] [place], [place] [address] Signed SPECIMEN(S): A PORTION OF SMALL BOWEL SPECIMEN SOURCE: A. PORTION OF SMALL BOWEL CLINICAL HISTORY: Small bowel perforated diverticulosis FINAL PATHOLOGIC DIAGNOSIS: Small bowel, segmental resection: - Small bowel mucosa with diverticulosis and diverticulitis with evidence of perforation - Surgical margins appear viable BRP MICROSCOPIC EXAMINATION: Histologic sections of all submitted blocks are examined by light microscopy. These findings, together with the gross examination, support the pathologic diagnosis. GROSS DESCRIPTION: The specimen, labeled and designated "Ball, a" and designated on the requisition "portion of small bowel," is received in formalin and consists of a previously opened segment of small bowel (10.2 cm in length by 7.5 cm in circumference) with aragon-pink to red-brown serosa and adherent white-aragon exudate. There is a stitch marking the distal margin. The mucosa is aragon-pink and edematous with perforated cystic area/diverticulum extending 2.5 cm into the located 4.5 cm from the proximal margin and 4.5 cm from the distal margin. Cassette Summary: (A1) proximal margin, shaved (A2) distal margin, shaved (A3-A4) perforated area/diverticulum (A5) additional bowel wall AC (under the direct supervision of a pathologist) The Gross Description was prepared using a voice recognition system. The report was reviewed for accuracy; however, sound-alike word errors, addition and/or deletions may occur. If there is any question about this report, please contact Client Services. PATIENT NAME: RUTH GROSS PATHOLOGY DATE OF : 50 REPORT #: [id number] PHYSICIAN: TAYLER NAIK PCP: NARESH HORTON REPORT IS CONFIDENTIAL AND NOT TO BE RELEASED WITHOUT AUTHORIZATION [facility] [address], [place] [address] Signed ADDITIONAL NOTES: Immunohistochemical and/or in situ hybridization studies if performed in this case included appropriate positive controls that reacted as expected. This test was developed and its performance characteristics determined by [facility]. It has not been cleared or approved by the U.S. Food and Drug Administration. The FDA has determined that such clearance or approval is not necessary. This test is used for clinical purposes. It should not be regarded as investigational or for research. [facility] is certified under the Clinical Laboratory Improvement Amendments of 1988 (CLIA) as qualified to perform high complexity clinical laboratory testing. PERFORMING LABORATORY: Technical component was performed by [facility], [address] [place] [address] (CLIA# [id number]). Professional interpretation was performed by [facility] - [facility], [address] [place] [address] (CLIA#: [id number]). Diagnostician: Adarsh Redd MD Pathologist Electronically Signed 07/22/2023 Copies: ~ PATIENT NAME: RUTH GROSS PATHOLOGY DATE OF : 50 REPORT #: [id number] PHYSICIAN: TAYLER NAIK PCP: NARESH HORTON REPORT IS CONFIDENTIAL AND NOT TO BE RELEASED WITHOUT AUTHORIZATION
--- NOTE | 2023-07-22 09:40 | NUR ---
PT SITTING IN CHAIR FINISHING BREAKFAST. NO COMPLAINTS. [facility]
--- NOTE | 2023-07-22 10:05 | NUR ---
PT AWAKE IN BED, DENIES PAIN/NAUSEA AT THIS TIME. PERIPHERAL IV IN THE LEFT FOREARM REMAINS, NOT ABLE TO CHART ASSESSMENT D/T ASSESSMENT AREA NOT ALLOWING TO FILL IN ASSESSMENT PAGE, IV WNL, FLUSHED WITH 10ML NS. MINIMAL IMPROVEMENT IN EDEMA. SCDs NOT IN PLACE PT HAS BEEN WALKING AND MOVING INDEPENDENTLY. ABDOMEN REMAINS MILDLY DISTENDED, NON-TENDER, BOWEL TONES CONTINUE TO BE HYPOACTIVE. PT STATES SHE HAS BEEN PASSING GAS THIS MORNING. PT STATES NO FURTHER NEEDS AT THIS TIME, CALL LIGHT WITHIN REACH.
--- NOTE | 2023-07-22 10:50 | NUR ---
Spoke with Tiara. She cont. to improve and denies needs.
--- NOTE | 2023-07-22 13:14 | NUR ---
PT UP FOR WALK AROUND UNIT, PT STATES SHE JUST HAD A BOWEL MOVEMENT.
--- NOTE | 2023-07-22 13:51 | NUR ---
PT SITTING IN CHAIR VISITING WITH FAMILY. PT REQUESTS DAVID PERSON NOTIIED. WILLOW MACHINE TENDER DOCUMENTED VITALS AND I AND O'S. TOILET URINAL EMPTIED. CALL LIGHT WITHIN REACH
--- NOTE | 2023-07-22 14:25 | NUR ---
THIS RN CALLS DR. BEARDEN TO UPDATE ON A1C LAB RESULT AND PT STATUS, PT HAVING BMs AND PASSING GAS. STATES OKAY TO ADVANCE PT TO 60G CARB FULL LIQUID DIET AND TO REMOVE GLUCOSE CHECK ORDERS WELL SS INSULIN ORDER. REPEAT BACK PERFORMED, ORDERS ENTERED.
--- NOTE | 2023-07-22 18:15 | NUR ---
PT UP WALKING AROUND UNIT, PT DENIES PAIN/NAUSEA.
--- NOTE | 2023-07-22 18:42 | NUR ---
PT WAS SITTING IN CHAIR FINISHING HER DINNER. [facility] [employer] REPORTER REMOVED DINNER TRAY AND CHARTED PT I/OS. PT STATES NO FURTHER COMPLAINTS AT THIS TIME. CALL LIGHT WITHIN REACH
--- NOTE | 2023-07-22 18:54 | NUR ---
PT UP TO CHAIR EATING DINNER, DENIES PAIN/NAUSEA. PT STATES NO FURTHER NEEDS AT THIS TIME, CALL LIGHT WITHIN REACH.
--- NOTE | 2023-07-22 19:05 | NUR ---
REPORT RECIEVED FROM BRANDIN PERSON. pt RESTING IN THE BED. BOARD UPDATED. IV ASSESSED, WNL. pt DENIES ANY NEEDS AT THIS TIME. CALL LIGHT WITHIN REACH.
--- NOTE | 2023-07-22 21:00 | NUR ---
ASSESSMENT AND VITAL SIGNS DONE. VSS. IVF INFUSING PER ORDER, SEE MAR. IV ABX INFUSING PER ORDER, SEE MAR. SCHEDULED MEDICATION ADMINISTERED, SEE MAR. MIDLINE INCISION OPEN TO AIR WITH PAULA, EDGES WELL APPROXAMATED, NO DRAINAGE NOTED. pt DENIES ANY OTHER NEEDS AT THIS TIME.
--- NOTE | 2023-07-23 00:10 | NUR ---
pt RESTING IN THE BED WITH EYES CLOSED. RR EVEN AND UNLABORED. NO S/SX OF OBVIOUS DISTRESS. CALL LIGHT WITHIN REACH.
--- NOTE | 2023-07-23 02:30 | NUR ---
IV ABX INFUSING PER ORDER, SEE MAR. BP MEDICATION ADMINISTERED, SEE MAR. pt DENIES ANY OTHER NEEDS AT THIS TIME. CALL LIGHT WITHIN REACH.
--- NOTE | 2023-07-23 04:35 | NUR ---
pt RESTING IN THE BED WITH EYES CLOSED. RR EVEN AND UNLABORED. CALL LIGHT WITHIN REACH.
[2023-07-23 05:47] LABS: ANION GAP 11.8 (7-21); BUN/CREATININE RATIO 10.6 (6.0-28.6); CALCIUM 8.9 mg/dL (8.5-10.1); CREATININE, SERUM 0.66 mg/dL (0.55-1.02); MAGNESIUM 1.9 mg/dL (1.8-2.4); PHOSPHORUS, INORGANIC 3.2 mg/dL (2.5-4.9); POTASSIUM 3.8 mmol/L (3.5-5.1)
[2023-07-23 06:17] VITALS: BP 122/60
--- NOTE | 2023-07-23 06:20 | NUR ---
ASSESSMENT AND VITAL SIGNS DONE. pt DENIES ANY OTHER NEEDS AT THIS TIME. CALL LIGHT WITHIN REACH.
--- NOTE | 2023-07-23 07:50 | NUR ---
PATIENT IS LAYING IN BED. COMMUNICATES THAT THERE IS NO CURRENT PAIN. STATES THAT HER GOAL FOR TODAY IS TO SHOWER BEFORE DISCHARGE. STATES THAT SHE DOES NOT NEED ANYTHING RIGHT NOW. APPEARS COMFORTABLE, RESTING EASY IN BED. CALL LIGHT AND BELONGINGS WITHIN REACH. PATIENT INDEPENDANT TO HER NEEDS, STEADY ON FEET, ALERT AND ORIENTED TO PERSON PLACE AND TIME.
--- NOTE | 2023-07-23 07:50 | NUR ---
PT RESTING IN BED WITH EYES OPEN WHEN GETTING REPORT FROM NIGHT RN. EXCITED TO GO HOME TODAY. ALL PT CARE NEEDS MET AT THIS TIME. CALL LIGHT WITHIN REACH.
--- NOTE | 2023-07-23 09:10 | NUR ---
Pt very cheerful. Planning on dc to home. Denies any needs.
[2023-07-23] MEDS ORDERED: AUGMENTIN 500-1 EACH PO (09:12)
[2023-07-23] MEDS ORDERED: METRONIDAZOLE500 MG PO (09:13)
--- NOTE | 2023-07-23 09:33 | DS ---
[facility] [address] [place], [place] [address] Signed ADMISSION DATE: 07/16/2023 DISCHARGE DATE: 07/23/2023 FINAL DIAGNOSIS: Infected small bowel diverticulum x1. PROCEDURES: Laparotomy with lysis of adhesions and small-bowel resection x1 with end-to-end anastomosis hand-sewn in two layers. HISTORY OF PRESENT ILLNESS: Tiara is a 72-year-old obese female, who came with a one-day history of actually right upper quadrant abdominal pain, nausea and vomiting. In the emergency room, her white count was elevated and a CT scan showed a 2.9 cm collection in the left mid abdominal mesentery communicating with the small bowel. That section of the small bowel was thickened. There was concern for infected diverticulum. I had been asked to admit her as a general surgeon on-call. HOSPITAL COURSE: Tiara was admitted as above and started on cefepime and Flagyl. She was hydrated and electrolytes corrected. We took her to surgery next day and she underwent a laparotomy with minimal to moderate lysis of adhesions and we resected that section of small bowel and brought it back together end-to-end hand-sewn in two layers. She did well both intraop and postop. We kept her on cefepime and Flagyl. She has made excellent progress each day. We had to place her electrolytes frequently. Each day she looks and feels better. She has increased her activity. She is now tolerating a full liquid diet, ambulating in the hallways and passed a significant amount of flatus and had a bowel movement. The abdomen remains soft, flat, nontender. The incision is quite satisfactory with a little bit ecchymoses inferiorly. Given her progress, she is going to be discharged to home. She is back on her usual medications as well. DISCHARGE PLANS AND MEDICATIONS: Tiara is going to be discharged to home with a prescription for Augmentin 500 mg one tablet p.o. b.i.d. for three days. We will give her Flagyl 500 mg one tablet p.o. t.i.d. for three days. She can use Tylenol, ibuprofen or Aleve for pain as she has here. She can continue all her usual chronic medications at home. She has been advised to follow a soft diet for the next 4 to 6 weeks. She is welcome to ambulate and perform her activities of daily living. She is allowed to walk up and down stairs. She can shower and bathe as usual. We are going to discontinue one-half of the cristi. She is not to do any heavy pushing, pulling, or lifting over about 20 pounds. We will have her back in Electronically Signed By: ROHINI BEARDEN MD 07/23/23 0933 PATIENT NAME: TIARA GROSS DISCHARGE SUMMARY DATE OF : 50 REPORT #: [id number] PHYSICIAN: ROHINI BEARDEN MD PCP: NARESH HORTON REPORT IS CONFIDENTIAL AND NOT TO BE RELEASED WITHOUT AUTHORIZATION [facility] [address] [place] [id number] Signed the office in about 7 to 10 days. She has expressed understanding and agrees with the above plan. Rohini Bearden MD ALB/MODL /[id number] cc: MD Naresh Villarreal FNP Copies: ROHINI BEARDEN MD, EILEEN FNP ~ Electronically Signed By: ROHINI BEARDEN MD 07/23/23 0933 PATIENT NAME: TIARA GROSS DISCHARGE SUMMARY DATE OF : 50 REPORT #: [id number] PHYSICIAN: ROHINI BEARDEN MD PCP: NARESH HORTON REPORT IS CONFIDENTIAL AND NOT TO BE RELEASED WITHOUT AUTHORIZATION
[2023-07-23 09:48] VITALS: BP 135/60
[2023-07-23 09:54] VITALS: BP 135/60
--- NOTE | 2023-07-23 10:00 | NUR ---
SET UP HER CLOTH TO SHOWER AND SHE IS DOING IT INDEPENTENTLY.
--- NOTE | 2023-07-26 14:08 | CONS ---
[facility] [address], [place] [address] Signed DATE OF CONSULTATION: 07/16/2023 CHIEF COMPLAINT: Right upper quadrant abdominal pain. HISTORY OF PRESENT ILLNESS: iTara is a 72-year-old obese female, who actually developed a 1-day history of right upper quadrant abdominal pain with quite a bit of nausea and vomiting. She actually feels better now that she is decompressed. She came to emergency room for evaluation. She seemed to be tender on that right side. White count was elevated. Potassium was a little low. Urine is a little dirty. Her CT scan shows recurrent moderate-sized hiatal hernia, but she has a 2.9 cm fluid collection with some air in the left mid abdominal small bowel mesentery and it seems to be communicating with a thickened piece of small bowel. She has been given some IV fluids along with some cefepime and Flagyl. I have been asked to admit her as a general surgeon on-call. PAST MEDICAL HISTORY: 1. History of a small bowel obstruction associated with a large ventral incisional hernia. 2. Hypertension. 3. Obesity. 4. Insomnia. 5. Personal history of colonic polyps. PAST SURGICAL HISTORY: Includes a laparoscopic cholecystectomy sometime before [address] Taylor. She has had multiple upper and lower endoscopies with Dr. Taylor including in April of 2023 and apparently everything was fine other than a few polyps in the colon. The upper endoscopy was unremarkable. 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 Taylor. In 2019, she had a rather significant supraumbilical ventral incisional hernia containing small bowel. She underwent a left component separation along with placement of submuscular Prolene with Dr. Taylor. I had seen that report and I do not see any evidence of small bowel resection or colectomy. She did have lysis of adhesions. SOCIAL HISTORY: She does not smoke. She has a drink once in a while. 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 She and her live in [place], [place]. Naresh Horton is her nurse practitioner at the [facility]. Santino is her at [phone]. They have two children. They prefer the [facility] in [place], [place]. She still drives. Electronically Signed By: ROHINI BEARDEN MD 07/17/23 0751 Electronically Signed By: ROHINI BEARDEN MD 07/26/23 1634 PATIENT NAME: TIARA GROSS CONSULTATION DATE OF : 50 REPORT #: [id number] PHYSICIAN: ROHINI BEARDEN MD PCP: NARESH HORTON REPORT IS CONFIDENTIAL AND NOT TO BE RELEASED WITHOUT AUTHORIZATION [facility] [address], [place] [address] Signed FAMILY HISTORY: Mom had lung cancer. Dad had COPD from wheat ranching and smoking. REVIEW OF SYSTEMS: She had 10 systems reviewed and she told me to her knowledge, she has never had any small intestine or large intestine resected. ALLERGIES: No known drug allergies, but apparently tape bothers her. MEDICATIONS: 1. Ibuprofen p.r.n. 2. Tylenol p.r.n. 3. Lisinopril 10 mg p.o. daily. 4. Trazodone 50 mg p.o. at bedtime. 5. Calcium and vitamin D. PHYSICAL EXAMINATION: VITAL SIGNS: Her blood pressure is 128/53, heart rate 70, respiratory rate 16, temperature is 97.7, she is 97% on room air. She is 5 feet 3 inches at 90 kg with a body mass index of 35. GENERAL: Tiara is a 72-year-old obese female, lying supine in her hospital bed with her sitting on the couch. She is in no acute distress. She is pleasant and cooperative. LUNGS: Clear to auscultation bilaterally. HEART: Regular rate and rhythm without murmurs. ABDOMEN: Obese, soft, but she is tender in the left mid quadrant of her abdomen. LABORATORY DATA: Her white blood count is 18,000, hemoglobin 14, neutrophils 72. Potassium 3.4, BUN 10, creatinine 0.8, glucose 146. Liver function tests are negative. Lipase 24, albumin 3.6. Urine showed some blood, white blood cells. A urine culture has been sent and it is pending. RADIOGRAPHIC STUDIES: CT scan of abdomen and pelvis is reviewed along with the report and the images. She has a moderate sized recurrent hiatal hernia along with a 2.9 cm collection in the left mid abdominal small bowel mesentery communicating with the small bowel which is thickened. ASSESSMENT AND PLAN: Tiara is a 72-year-old female, who presents with some perforated small bowel and a contained fluid collection in the left mid quadrant of her abdomen. She is a little hypokalemic from her vomiting. She is a little dehydrated and her mouth and lips are a Electronically Signed By: ROHINI BEARDEN MD 07/17/23 9525 Electronically Signed By: ROHINI BEARDEN MD 07/26/23 1634 PATIENT NAME: TIARA GROSS CONSULTATION DATE OF : 50 REPORT #: [id number] PHYSICIAN: ROHINI BEARDEN MD PCP: NARESH HORTON REPORT IS CONFIDENTIAL AND NOT TO BE RELEASED WITHOUT AUTHORIZATION [facility] [address] [place], [place] [address] Signed little dry. I explained to Tiraa and her the above findings. I think unfortunately this is going to need surgery to be addressed definitively. She has been admitted and we will continue the antibiotics and replace her potassium. We will probably plan on this 1st thing in the morning. She understands this could potentially be a very difficult surgery. There is risk including, but not limited to bleeding, infection, scarring, change in contour of the skin, damage to bowel, anastomotic leak, recurrent incisional hernias and other unforeseen comorbidities. They have expressed understanding and agreed with the above plan. Rohini Bearden MD [facility] /[id number] cc: DEWAYNE Gutierrez MD Copies: NARESH HORTON ANDREW L MD ~ Electronically Signed By: ROHINI BEARDEN MD 07/17/23 0757 Electronically Signed By: ROHINI BEARDEN MD 07/26/23 1634 PATIENT NAME: TIARA GROSS CONSULTATION DATE OF : 50 REPORT #: [id number] PHYSICIAN: ROHINI BEARDEN MD PCP: NARESH HORTON REPORT IS CONFIDENTIAL AND NOT TO BE RELEASED WITHOUT AUTHORIZATION
== END 2023-07-23 10:40 | disposition home or self-care (01) | DRG 331 ==
LOC: ED 09:42 → MS 12:02
PROVIDERS: Emergency Medicine; Internal Medicine; ADMIT Colon & Rectal Surgery; ATTEND Colon & Rectal Surgery
PROC: 0DB80ZZ Excision of Small Intestine, Open Approach (ICD-10-PCS; 2023-07-17)
PROC: 0DNU0ZZ Release Omentum, Open Approach (ICD-10-PCS; 2023-07-17)
PROC: 0DBV0ZZ Excision of Mesentery, Open Approach (ICD-10-PCS; 2023-07-17)
PROC: 0DN80ZZ Release Small Intestine, Open Approach (ICD-10-PCS; principal; 2023-07-17 09:11)
DX: K57.00 Diverticulitis of small intestine with perforation and abscess without bleeding (principal); E66.9 Obesity, unspecified; I10 Essential (primary) hypertension; G47.00 Insomnia, unspecified; E87.6 Hypokalemia; E86.0 Dehydration; E83.42 Hypomagnesemia; E83.39 Other disorders of phosphorus metabolism; R09.02 Hypoxemia; R73.9 Hyperglycemia, unspecified; Z86.010 Personal history of colon polyps; Z90.49 Acquired absence of other specified parts of digestive tract; Z79.899 Other long term (current) drug therapy; Z68.35 Body mass index [BMI] 35.0-35.9, adult
CPT/HCPCS: 00840; 36415; 74177; 76942; 80048; 80053; 81001; 83036; 83690; 83735; 84100; 84134; 85025; 87077; 87088; 88307; 93005; 93010; 94760; 94762; 99285-25; C9113; J0131; J0692; J0780; J1100; J1170; J1200; J1650; J1815; J1885; J2405; J2795; J3475; J3480; J3490; J7030; J7042; J7060; J7121; Q9967